=== PATIENT | male | born 1945 | race Caucasian/White ===

== ENCOUNTER 2017-08-05 19:30 | Outpatient (CLI) | payer MEDICARE | END 2017-08-05 19:31 | disposition home or self-care (01) | LOC: SLEEPLAB 19:30 | PROVIDERS: ATTEND Internal Medicine | DX: G47.33 Obstructive sleep apnea (adult) (pediatric) (principal); I50.9 Heart failure, unspecified; I11.0 Hypertensive heart disease with heart failure; G31.84 Mild cognitive impairment of uncertain or unknown etiology; E11.9 Type 2 diabetes mellitus without complications; E66.9 Obesity, unspecified; R06.83 Snoring | CPT/HCPCS: 95811 ==

== ENCOUNTER 2018-02-01 10:45 | Emergency (ER) | payer MEDICARE ==
[2018-02-01 11:46] LABS: #Eosinphils 0.1 thou/uL (0.0-0.7); #Lymphocytes 1.1 thou/uL (1.20-3.40); #Monocytes 0.5 thou/uL (0.11-0.59); #Neutrophils 3.9 thou/uL (1.40-6.50); %Basophils 0.7 % (0.0-1.0); %Eosinophils 1.7 % (0.0-10.0); %Lymphocytes 19.9 % (21.0-51.0); %Monocytes 9.4 % (0.0-10.0); %Neutrophils 68.4 % (42.0-75.0); Mean Corpuscular HGB CONC 32.7 g/dL (32.0-36.0); Mean Corpuscular Hemoglobin 30.8 pg (27.0-31.0); Mean Corpuscular Volume 94.1 fl (80.0-94.0); Mean Platelet Volume 7.4 fL (7.4-10.4); Platelet Count 180 thou/uL (130-400); Red Blood Cell (RBC) Count 4.87 mill/uL (4.70-6.10); White Blood Cell (WBC) Count 5.7 thou/uL (4.8-10.8)
[2018-02-01 11:54] LABS: ALT (SGPT) 9 U/L (8-55); AST (SGOT) 9 U/L (5-34); Albumin 3.3 g/dL (3.4-4.8); Alkaline Phosphatase 57 U/L (40-150); Anion Gap 10 mmol/L (10-20); BUN (Urea Nitrogen) 22 mg/dL (8.4-25.7); Bilirubin, Total 0.7 mg/dL (0.2-1.2); Calc. Creatinine Clearance 0 mL/min (70-130); Carbon Dioxide 27 mmol/L (23-31); Chloride 108 mmol/L (98-107); Estimated GFR-MDRD 44; Globulin 3.5 g/dL (2.4-3.5); Glucose 164 mg/dL (83-110); Potassium 4.3 mmol/L (3.5-5.1); Protein, Total 6.8 g/dL (5.8-8.1); Sodium 141 mmol/L (136-145)
[2018-02-01] MEDS ORDERED: Furosemide 40 MG/4 ML VIAL ONE (14:48)
--- NOTE | 2018-02-01 15:51 | RAD ---
PORTABLE FRONTAL CHEST RADIOGRAPH: Date: 02-01-18 Comparison: 08-22-09 History: Bilateral lower extremity edema for three months. Fluid overload. FINDINGS: There is mild blunting of the left costophrenic angle, stable. There is prominence of the cardiac reena houette, stable as well. No pneumothorax, consolidation, or alveolar edema. IMPRESSION: No acute findings. POS: [facility]
== END 2018-02-01 16:14 | disposition home or self-care (01) ==
LOC: ERS 10:45
DX: R60.0 Localized edema (principal); E11.9 Type 2 diabetes mellitus without complications; E78.5 Hyperlipidemia, unspecified; I10 Essential (primary) hypertension; Z79.82 Long term (current) use of aspirin; Z79.899 Other long term (current) drug therapy
CPT/HCPCS: 71045; 80053; 85025; J1940

== ENCOUNTER 2018-10-10 12:18 | Outpatient (CLI) | payer MEDICARE ==
--- NOTE | 2018-10-10 14:58 | MRI ---
BRAIN MRI NONCONTRAST: Date: 10/10/18 CLINICAL HISTORY: Memory impairment in 73-year-old male. FINDINGS: No evidence of acute territorial infarction, intracranial mass effect, or midline shift. Mild parench ymal atrophy with compensatory dilatation of the ventricular system is present. There is mild chronic ischemic disease of the cerebral white matter, as well as mild pontine gliosis. [place] intraocular l enses are intact. Scattered paranasal sinus mucosal thickening. Mild bilateral mastoid fluid is prese nt, right greater than left. There are a few scattered punctate foci susceptibility of the bilateral brain parenchyma. IMPRESSION: 1. No acute territorial infarction or mass effect. 2. Scattered punctate susceptibility foci. In a patient of this age, diagnosis of consideration woul d include amyloid angiopathy. 3. Mild chronic ischemic disease and mild parenchymal atrophy. POS: [facility]
== END 2018-10-10 12:19 | disposition home or self-care (01) ==
LOC: BICMRI 12:18
PROVIDERS: ATTEND Family Medicine
DX: R41.3 Other amnesia (principal); I67.82 Cerebral ischemia; G31.9 Degenerative disease of nervous system, unspecified
CPT/HCPCS: 70551

== ENCOUNTER 2018-11-26 12:59 | Inpatient (IN) | payer MEDICARE ==
--- NOTE | 2018-11-26 14:54 | CT ---
CT BRAIN: Date: 11/26/18 PROVIDED CLINICAL HISTORY: Altered mental status. FINDINGS: Comparison made with study dated 08/23/09. The ventricular system is normal in size and morphology. There is no evidence for intracranial hemorr atyler or mass effect. There is opacification of the sphenoid sinus with sphenoid sinus wall thickening compatible with chronic sinusitis. The extracranial soft tissues and osseous structures demonstrate no evidence for an acute process. IMPRESSION: No evidence for intracranial hemorrhage or mass effect. POS: [facility]
--- NOTE | 2018-11-26 14:55 | RAD ---
PORTABLE SUPINE CHEST: Date: 11/26/18 PROVIDED CLINICAL HISTORY: Altered mental status. FINDINGS: Comparison with 02/01/18. Cardiac and mediastinal silhouette is within normal limits. No focal consolidation evident. Evaluatio n for pleural fluid and pneumothorax is limited given the supine nature of the study, without gross e vidence for such. IMPRESSION: No evidence for an acute cardiopulmonary process. POS: [facility]
[2018-11-26 14:57] LABS: #Eosinphils 0.1 thou/uL (0.0-0.7); #Lymphocytes 1.1 thou/uL (1.20-3.40); #Neutrophils 10.2 thou/uL (1.40-6.50); %Basophils 0.2 % (0.0-1.0); %Eosinophils 0.6 % (0.0-10.0); %Lymphocytes 9.1 % (21.0-51.0); %Monocytes 7.8 % (0.0-10.0); %Neutrophils 82.3 % (42.0-75.0); Mean Corpuscular Hemoglobin 30.3 pg (27.0-31.0); Mean Corpuscular Volume 91.8 fL (78.0-98.0); Mean Platelet Volume 7.9 fL (7.4-10.4); Platelet Count 150 thou/uL (130-400); RBC Distribution Width 12.3 % (11.5-14.5); Red Blood Cell (RBC) Count 4.63 mill/uL (4.70-6.10); White Blood Cell (WBC) Count 12.4 thou/uL (4.8-10.8)
[2018-11-26 15:22] LABS: ALT (SGPT) 30 U/L (8-55); AST (SGOT) 66 U/L (5-34); Acetaminophen Less than 6.0 mcg/mL (10.0-30.0); Albumin 3.1 g/dL (3.4-4.8); Alcohol Less than 10 mg/dL (Less than 10); Alkaline Phosphatase 75 U/L (40-150); Anion Gap 18 mmol/L (10-20); BUN (Urea Nitrogen) 26 mg/dL (8.4-25.7); Bilirubin, Total 1.1 mg/dL (0.2-1.2); CK (CPK) 2254 U/L (30-200); Calc. Creatinine Clearance 0 mL/min (70-130); Calcium 9.3 mg/dL (7.8-10.44); Carbon Dioxide 21 mmol/L (23-31); Chloride 108 mmol/L (98-107); Estimated GFR-MDRD 48; Globulin 3.7 g/dL (2.4-3.5); Glucose 146 mg/dL (83-110); Potassium 3.8 mmol/L (3.5-5.1); Protein, Total 6.8 g/dL (5.8-8.1); Salicylate Less than 8.0 mg/dL (15.0-30.0); Sodium 143 mmol/L (136-145)
--- NOTE | 2018-11-26 15:32 | RAD ---
PELVIC RADIOGRAPH 11/26/18 PROVIDED CLINICAL HISTORY: Pain. FINDINGS: Evaluation is limited by patient body habitus and portable technique. There is no evidence for fractu re or other acute osseous abnormality. If there is persistent clinical concern, conservative manageme nt and followup imaging are advised. IMPRESSION: As above. POS: [facility]
--- NOTE | 2018-11-26 16:26 | PDOC.FPRHP ---
- History of Present Illness Chief Complaint: fall History of Present Illness: 73 yo M with PMH of memory impairment brought in by EMS for fall. Pt lives in a travel trailer by himself and was found on the floor by his neighbor who called EMS. Patient says he has been on the floor for the past 10 days and has been visited by "weird people" such as "tom doctors from [place]" which have picked him up from the floor and returned him back there. He says he knows this sounds crazy but acknowledges these experiences as very real. He has noticed worsening of memory for the past 6 mos but does not seem very distressed by this. Of note, he recently had an MRI Brain last October that showed amyloidosis deposits but has not had follow up for this. He does not have any psychiatric history. He denies any pain from the fall, no chest pain, seizure, syncope, remarkable weakness. Also, he has a PMH of HTN and DM2 but has not been taking his meds for the past 10 days because he says "his diabetes and blood pressure are under control." though he doesn't check sugars or BPs. 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 Denies alcohol and drugs - Review of Systems ROS unobtainable: due to mental status (of note, ROS is not wholly reliable due to patient mental status) General: denies: fever/chills, weight/appetite/sleep changes Eyes: reports: vision changes (blurry vision, chronic). denies: eye pain ENT: denies: nasal congestion, rhinorrhea Respiratory: denies: cough, congestion, shortness of breath Cardiovascular: denies: chest pain, palpitation, edema Gastrointestinal: denies: nausea, vomiting, diarrhea, constipation Genitourinary: denies: dysuria, polyuria Skin: denies: rashes, lesions, jaundice Musculoskeletal: denies: pain, tenderness, stiffness Neurological: denies: syncope, seizure, weakness Psychological: denies: anxiety, depression - Vital signs BP: [135/46] HR: [73] RR: [20] Tmax: [98.2] Pox: [98]% on [RA] Wt: [163 kg] - Physical Exam Constitutional: NAD, awake, alert and oriented -Constitutional: obese body habitus, poor hygenic status HEENT: normocephalic and atraumatic, PERRLA, EOMI, no scleral icterus, grossly normal vision Neck: supple, no JVD, no thyromegaly Chest: no-tender to palpation, no lesions Heart: RRR, normal S1/S2 Lungs: CTAB, no respiratory distress, no wheezing Abdomen: soft, non-tender, bowel sounds present Musculoskeletal: ROM grossly normal Neurological: CN II-XII intact Skin: no jaundice -Skin: bilateral lower extremity non pitting edema with red rash limited from ankle to mid springer. no warmth or tenderness. no sharp demarcation. no open or draining wounds. -Psychiatric: poor recent memory, intact remote memory FMR H&P: Results - Labs Result Diagrams: 11/26/18 14:27 11/26/18 14:27 Lab results: WBC 12.4 thou/uL (4.8-10.8) H 11/26/18 14:27 Hgb 14.0 g/dL (14.0-18.0) 11/26/18 14:27 Hct 42.5 % (42.0-52.0) 11/26/18 14:27 MCV 91.8 fL (78.0-98.0) 11/26/18 14:27 Plt Count 150 thou/uL (130-400) 11/26/18 14:27 Neutrophils % 82.3 % (42.0-75.0) H 11/26/18 14:27 Sodium 143 mmol/L (136-145) 11/26/18 14:27 Potassium 3.8 mmol/L (3.5-5.1) 11/26/18 14:27 Chloride 108 mmol/L (98-107) H 11/26/18 14:27 Carbon Dioxide 21 mmol/L (23-31) L 11/26/18 14:27 BUN 26 mg/dL (8.4-25.7) H 11/26/18 14:27 Creatinine 1.45 mg/dL (0.7-1.3) H 11/26/18 14:27 Glucose 146 mg/dL (83-110) H 11/26/18 14:27 Calcium 9.3 mg/dL (7.8-10.44) 11/26/18 14:27 Total Bilirubin 1.1 mg/dL (0.2-1.2) 11/26/18 14:27 AST 66 U/L (5-34) H 11/26/18 14:27 ALT 30 U/L (8-55) 11/26/18 14:27 Alkaline Phosphatase 75 U/L (40-150) 11/26/18 14:27 Creatine Kinase 2254 U/L (30-200) H 11/26/18 14:27 Serum Total Protein 6.8 g/dL (5.8-8.1) 11/26/18 14:27 Albumin 3.1 g/dL (3.4-4.8) L 11/26/18 14:27 - Radiology Interpretation Chest x-ray Status: report reviewed by me CT scan - pelvis Status: report reviewed by me CT scan - head Status: report reviewed by me FMR H&P: A/P - Problem List (1) Acute encephalopathy Current Visit: Yes Status: Acute Code(s): G93.40 - ENCEPHALOPATHY, UNSPECIFIED (2) Rhabdomyolysis Current Visit: Yes Status: Acute Code(s): M62.82 - RHABDOMYOLYSIS (3) Dementia with psychosis Current Visit: Yes Status: Acute Code(s): F03.91 - UNSPECIFIED DEMENTIA WITH BEHAVIORAL DISTURBANCE (4) Diabetes type 2, controlled Current Visit: Yes Status: Acute Code(s): E11.9 - TYPE 2 DIABETES MELLITUS WITHOUT COMPLICATIONS (5) Hypertension Current Visit: Yes Status: Acute Code(s): I10 - ESSENTIAL (PRIMARY) HYPERTENSION (6) CKD (chronic kidney disease) Current Visit: Yes Status: Acute Code(s): N18.9 - CHRONIC KIDNEY DISEASE, UNSPECIFIED (7) Metabolic acidosis Current Visit: Yes Status: Acute Code(s): E87.2 - ACIDOSIS - Plan 73 yo M with recent diagnosis of 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 brought in by EMS for fall and acute encephalopathy with rhabdomyloysis Dementia with hallucinations -MRI brain in October 2018 shows amyloid deposits, likely worsening progression dementia -Brain CT negative, CXR negative -Less likely infectious etiology, however will check procal -TSH low, will recheck fT4 -B9,B12 -Mg, phos, UA, UCx -haldol PRN -Unsure of baseline, plan to contact neighbors for better gauge of this Rhabdomyolysis -CPK 2254, 3x ULN -LR @150 -check lactic acid -AM CPK, daily BMP DINA vs CKD -no recent creatinine, however gfr around baseline -gentle fluids -daily BMPs Non-AG metabolic acidosis -fluids -daily BMPs Stasis dermatitis -no open or draining wounds -monitor, expect to improve with diuresis HTN -home lasix and lisinopril DM2 -recheck A1c -mod SS -hold metformin due to renal function prolonged QTc -aware, tele monitoring dvt ppx: lovenox gi ppx: none Discussed with Dr. hansen FMR H&P: Upper Level - Pertinent history 73 yo WM PMH HTN, HLD, DM2, and recent worsening mental impairment. Presents via EMS after patient was found down at home by neighbor. Patient states he has been "periodically on the floor for 10 days" and "strange people are breaking into my house and taking me places." He describes one of these people as a "witch doctor from [place]." States he does not remember where the people take him. Denies CP, SOB, or abdominal pain. ER: Labs, CT brain, CXR, XR pelvis, EKG, NS 1L - Pertinent findings Vitals: BP mildly elevated otherwise WNL GEN: NAD A&Ox4. Morbidly obese, malodorous. CV: RRR no murmur Pulm: CTA-B, normal effort Ext: Non pitting edema, right leg red without warmth or tenderness consistent with stasis dermatitis Psych: endorses visual hallucinations. Understands they sound irrational but believes he is being taken from his trailer to other locations and returned. Labs: CPK 2254, TSH 0.3125 EKG: NSR, mild QTc prolongation CT Brain: No acute processes CXR: No acute processes XR pelvis: Limited exam, no acute fractures. - Plan Date/Time: 11/26/18 1623 I, Manny Harmon MD, have evaluated this patient and agree with findings/plan as outlined by [facility] intern resident. Pertinent changes/additions are listed here. 1. Rhabdomyolysis 2/2 fall with unknown down time: LR 150 mL/hr, daily BMP and CPK, monitor for signs of fluid overload 2. CKD3: stable based on most recent clinic labs 3. Mild metabolic acidosis: check lactic acid 4. Leukocytosis: check procalcitonin, monitor for signs of infection 5. Stasis dermatitis: wound care 6. Dementia with hallucinations: DDx includes Alzheimer's vs Lewy body dementia vs frontotemporal dementia. MRI in October showed concern for amyloid deposits. ROSA [facility]. Discussed placement with patient who was agreeable to considering temporary placement. will continue outpatient evaluation. Consult CM for placement. 7. HTN: home meds 8. DM2: Home meds, SSI, check A1c 9. HLD: high intensity statin Diet: CC, PATRICIA PPx: lovenox CODE: DNR-DNI, while patient is having visual hallucinations, I feel he is competent and understands the consequences of his decisions. Dispo: Inpatient, Tele, >[address] Hansen. Addendum - Attending - Attending Attestation Date/Time: 11/26/181917 I personally evaluated the patient and discussed the management with Dr. Bates I agree with the History, Examination, Assessment and Plan documented above with any addition or exceptions noted below.Patient would not be appropriate to return to current living situations without significant improvement. Morbid obesity with poor hygiene ,stasis dermatitis lower extremities and AMS with currently unknown mental status baseline . Rhabdomyolysis noted on lab iv hydration started and metformin held.
[2018-11-26] MEDS ORDERED: Adacel (T-DAP) 0.5 ML SYRINGE ONE (16:40)
[2018-11-26] MEDS ORDERED: Dextrose 5% in Water 1,000 ML IV PRN (16:49)
[2018-11-26] MEDS ORDERED: HumaLOG 300 UNITS/3 ML VIAL SC PRN (16:49)
[2018-11-26] MEDS ORDERED: Dextrose 50% Abboject 50 ML SYRINGE SLOW IVP PRN (16:49)
[2018-11-26 17:08] LABS: Hemoglobin A1c 7.5 % (4.0-6.0)
[2018-11-26 17:16] LABS: Magnesium 1.8 mg/dL (1.6-2.6); Phosphorus 3.4 mg/dL (2.3-4.7)
[2018-11-26] MEDS ORDERED: Haloperidol Lactate 5 MG/ML VIAL SLOW IVP PRN (17:19)
[2018-11-26 17:22] LABS: Bilirubin Small (Negative); Blood, Urine Trace (Negative); Clarity CLEAR (Clear); Glucose, Urine (Dipstick) Negative (Negative); Leukocyte Negative (Negative); Nitrite Negative (Negative); Protein, Urine (Dipstick) 30 mg/dL (Neg-Trace); Specific Gravity, Urine 1.022 (1.002-1.036); Urobilinogen 0.2 mg/dL (0.2-1.0)
[2018-11-26 17:26] LABS: Squamous Epithelial 0-3 HPF (0-3); WBC/HPF 0-3 HPF (0-3)
[2018-11-26 17:28] LABS: Pathc Cast-AUWi Flag 5.08 (0-2.49)
[2018-11-26 17:33] LABS: Amphetamine Not Detected (NotDetected); Barbiturates Screen Not Detected (NotDetected); Benzodiazepine Screen Not Detected (NotDetected); Cocaine Metabolite Screen Not Detected (NotDetected); Medtox Control Line Valid? VALID (VALID); Medtox Reader # READER 1; Methadone Not Detected (NotDetected); Methamphetamine Not Detected (NotDetected); Opiate Screen Not Detected (NotDetected); Oxycodone Screen Not Detected (NotDetected); Phencyclidine (PCP) Not Detected (NotDetected); THC/Cannabinoid Screen Not Detected (NotDetected); Tricyclic Screen Not Detected (NotDetected)
[2018-11-26 17:37] LABS: Bacteria/HPF 1+ HPF (None Seen); Hyaline Casts/LPF 4-6 HYALINE CAST LPF (0-3 Hyaline); Manual Microscopic Reviewed? No Path Casts Seen; RBC/HPF 0-3 HPF (0-3)
[2018-11-26 19:28] LABS: Troponin I 0.011 ng/mL (< 0.028)
[2018-11-26 19:56] LABS: Folate (Folic Acid) 3.2 ng/mL (7.0-31.4)
[2018-11-26 20:13] LABS: Lactic Acid 2.2 mmol/L (0.5-2.2)
[2018-11-26 21:22] LABS: Troponin I Less than 0.010 ng/mL (< 0.028)
[2018-11-27 04:08] LABS: ALT (SGPT) 31 U/L (8-55); AST (SGOT) 53 U/L (5-34); Albumin 2.7 g/dL (3.4-4.8); Alkaline Phosphatase 52 U/L (40-150); Anion Gap 14 mmol/L (10-20); BUN (Urea Nitrogen) 24 mg/dL (8.4-25.7); CK (CPK) 1521 U/L (30-200); Calc. Creatinine Clearance 0 mL/min (70-130); Calcium 8.9 mg/dL (7.8-10.44); Carbon Dioxide 22 mmol/L (23-31); Chloride 109 mmol/L (98-107); Estimated GFR-MDRD 57; Globulin 3.6 g/dL (2.4-3.5); Glucose 154 mg/dL (83-110); Potassium 3.6 mmol/L (3.5-5.1); Protein, Total 6.3 g/dL (5.8-8.1); Sodium 141 mmol/L (136-145)
[2018-11-27 04:33] LABS: Hemoglobin 13.8 g/dL (14.0-18.0); Mean Corpuscular HGB CONC 32.9 g/dL (32.0-36.0); Mean Corpuscular Hemoglobin 31.2 pg (27.0-31.0); Mean Corpuscular Volume 94.9 fL (78.0-98.0); Mean Platelet Volume 7.3 fL (7.4-10.4); Platelet Count 181 thou/uL (130-400); RBC Distribution Width 12.4 % (11.5-14.5); Red Blood Cell (RBC) Count 4.42 mill/uL (4.70-6.10)
--- NOTE | 2018-11-27 05:36 | PDOC.FM ---
- Subjective Subjective: NAEO. Patient denies any SOB, chest pain, or fever/chills. State she feels well this AM. A&Ox3. No delusions came up in conversation. - Objective MAR Reviewed: Yes Result Diagrams: 11/27/18 03:40 11/27/18 03:40 Phys Exam - Physical Examination Constitutional: NAD HEENT: moist MMs Neck: supple, full ROM Respiratory: no rales, no rhonchi, wheezing present, clear to auscultation bilateral Cardiovascular: RRR, no significant murmur Gastrointestinal: positive bowel sounds Musculoskeletal: edema present Neurological: non-focal, moves all 4 limbs Psychiatric: normal affect, A&O x 3 Skin: normal turgor Deviation from normal: stasis dermatitis in B/L LEs with thick, brown debris on toe Dx/Plan (1) Acute encephalopathy Code(s): G93.40 - ENCEPHALOPATHY, UNSPECIFIED Status: Acute (2) CKD (chronic kidney disease) Code(s): N18.9 - CHRONIC KIDNEY DISEASE, UNSPECIFIED Status: Acute (3) Dementia with psychosis Code(s): F03.91 - UNSPECIFIED DEMENTIA WITH BEHAVIORAL DISTURBANCE Status: Acute (4) Diabetes type 2, controlled Code(s): E11.9 - TYPE 2 DIABETES MELLITUS WITHOUT COMPLICATIONS Status: Acute (5) Hypertension Code(s): I10 - ESSENTIAL (PRIMARY) HYPERTENSION Status: Acute (6) Metabolic acidosis Code(s): E87.2 - ACIDOSIS Status: Acute (7) Rhabdomyolysis Code(s): M62.82 - RHABDOMYOLYSIS Status: Acute - Plan Plan: 73YOM with recent diagnosis of 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 Dementia with hallucinations -MRI brain in October 2018 shows amyloid deposits, likely worsening progression dementia -Brain CT & CXR negative on presentation to the ED. -Less likely infectious etiology as patient was non-toxic appearing and vitals were WNL -TSH low but T4 WNLs. -B12, Mg, & phos WNLs but folate low at 3.2. will start on QD supplementation. -UA showed 1+ bacteria and small bld, Cx pending. - Will continue haldol PRN & contact neighbors today for better gauge of this. Will likely need senior living placement vs. short stay in SNF or rehab. - Will frequently reorient and try to keep patient awake during the day so he will sleep well at night. Rhabdomyolysis - CPK down to 1.5k this AM. - Will continue LR @ 150mL/hr - AM CPK & daily BMP DINA vs CKD -no recent creatinine for comparison but down to 1.24 this AM w/ eGFR of 57. -daily BMPs Non-AG metabolic acidosis - slightly improved - Will continue with IVFs & daily BMPs Stasis dermatitis -no open or draining wounds -will elevate legs in bed when sitting -monitor, expect to improve with diuresis -WC consulted HTN -home lasix and lisinopril now that renal function & CPK have improved DM2 -A1c 7.5 so DM decently controlled -mod SS -held metformin due to renal function but will consider resuming since renal function has improved w/ fluids prolonged QTc -aware, tele monitoring IVFs: LR @ 150mL/hr dvt ppx: lovenox gi ppx: none Addendum - Attending - Attending Attestation Date/Time: 11/27/18 5033 I personally evaluated the patient and discussed the management with Dr. Cardenas I agree with the History, Examination, Assessment and Plan documented above with any addition or exceptions noted below.Rec notify APS to evaluate home living situation and explore placement [facility].
[2018-11-27 06:55] LABS: Band 4 % (5-11); Eosinophils 2 % (0-10); Lymphocytes 18 % (21-51); MDiff Complete? YES; Monocytes 7 % (0-10); Neutrophil 69 % (42-75)
[2018-11-27] MEDS: Lactated Ringer's 1,000 ML IV SCH ×5 (07:33→21:44)
[2018-11-27] MEDS: Atorvastatin Calcium 40 MG TAB PO SCH ×2 (07:34→21:43)
[2018-11-27] MEDS ORDERED: Enoxaparin Sodium 40 MG/0.4 ML SYRINGE ONE (08:10)
[2018-11-27] MEDS ORDERED: Furosemide 40 MG TAB ONE (08:10)
[2018-11-27] MEDS ORDERED: Lisinopril 10 MG TAB ONE ×2 (08:10→08:20)
[2018-11-27] MEDS: Enoxaparin Sodium 40 MG/0.4 ML SYRINGE SC SCH (08:34)
[2018-11-27] MEDS: Lisinopril 20 MG TAB PO SCH (08:34)
[2018-11-27] MEDS: Folic Acid 1 MG TAB PO SCH (08:34)
[2018-11-27] MEDS: Furosemide 40 MG TAB PO SCH (08:34)
[2018-11-27] MEDS ORDERED: Folic Acid 1 MG TAB ONE (09:05)
[2018-11-27 13:11] VITALS: BMI 43.8
[2018-11-27] MEDS: Loperamide HCl 2 MG CAP PO PRN ×2 (21:43→23:17)
[2018-11-28] MEDS: Loperamide HCl 2 MG CAP PO PRN ×2 (02:03→05:24)
[2018-11-28] MEDS: Lactated Ringer's 1,000 ML IV SCH ×2 (02:31→10:25)
--- NOTE | 2018-11-28 06:17 | PDOC.FM ---
- Subjective Subjective: Overnight, patient had multiple episodes of diarrhea, non bloody. Patient has no complaints or concerns this AM. Denies SOB, chest pain, abdominal pain, NV, fever/chills. - Objective MAR Reviewed: Yes Vital Signs & Weight: Vital Signs (12 hours) Temp Pulse Resp BP Pulse Ox 11/27/18 20:00 97.6 F 65 18 158/78 H 96 Weight Weight 154.873 kg I&O: 11/26/18 11/27/18 11/28/18 06:59 06:59 06:59 Intake Total 3158 Output Total 550 Balance 2608 Result Diagrams: 11/28/18 06:19 11/28/18 06:19 Phys Exam - Physical Examination Constitutional: NAD HEENT: PERRLA, moist MMs, sclera anicteric Neck: supple, full ROM Respiratory: clear to auscultation bilateral Cardiovascular: RRR Gastrointestinal: soft, non-tender, no distention, positive bowel sounds bilateral 2+ edema Neurological: non-focal, moves all 4 limbs Psychiatric: A&O x 3 Deviation from normal: no hallucinations or delusions Deviation from normal: ulcer stage 2 on right springer Dx/Plan (1) Acute encephalopathy Code(s): G93.40 - ENCEPHALOPATHY, UNSPECIFIED Status: Acute (2) CKD (chronic kidney disease) Code(s): N18.9 - CHRONIC KIDNEY DISEASE, UNSPECIFIED Status: Acute (3) Dementia with psychosis Code(s): F03.91 - UNSPECIFIED DEMENTIA WITH BEHAVIORAL DISTURBANCE Status: Acute (4) Diabetes type 2, controlled Code(s): E11.9 - TYPE 2 DIABETES MELLITUS WITHOUT COMPLICATIONS Status: Acute (5) Hypertension Code(s): I10 - ESSENTIAL (PRIMARY) HYPERTENSION Status: Acute (6) Metabolic acidosis Code(s): E87.2 - ACIDOSIS Status: Acute (7) Rhabdomyolysis Code(s): M62.82 - RHABDOMYOLYSIS Status: Acute - Plan Plan: Dementia with hallucinations Pt w/ hx of MRI brain in October 2018 shows amyloid deposits, likely worsening progression dementia - Brain CT & CXR negative on presentation to the ED - Less likely infectious etiology as patient was non-toxic appearing and vitals were WNL; procal 0.4 - TSH low but T4 WNLs. - B12, Mg, & phos WNLs but folate low at 3.2. Will start on QD supplementation. - UA showed 1+ bacteria and small bld, Cx pending. - Will continue haldol PRN & contact neighbors for better gauge of this. Will likely need penitentiary placement vs. short stay in SNF or rehab. CM consulted to help with discharge planning. - Will frequently reorient and try to keep patient awake during the day so he will sleep well at night. Rhabdomyolysis - CPK 1521 -> 843 - Will continue LR @ 150mL/hr - AM CPK & daily BMP DINA vs CKD - no recent creatinine for comparison but down to 1.24 -> 1.17 - daily BMPs Diarrhea - CDiff assay pending - pt given Immodium Non-AG metabolic acidosis - slightly improved - Will continue with IVFs & daily BMPs Stasis dermatitis - No open or draining wounds - Will elevate legs in bed when sitting - Monitor, expect to improve with diuresis - WC consulted HTN - Home lasix and lisinopril now that renal function & CPK have improved DM2 - A1c 7.5 so DM decently controlled - mod SS - Will restart home metformin Prolonged QTc - aware, tele monitoring Code: FULL Dispo: pending placement, clinically improved, discharge in 1-2days Addendum - Attending - Attending Attestation Date/Time: 11/28/18 4309 I personally evaluated the patient and discussed the management with Dr. Cintron I agree with the History, Examination, Assessment and Plan documented above with any addition or exceptions noted below. Today patient is A&O x 3. He still has some confusion about what happened before his hospitalization. Today complains of low back and hip pain. s/p fall- pelvis xray neg- no incontinence symptoms, just pain (which most likely is related to being found down after several days on the ground). normal sensation b lower extremeties and able to lift legs (just weaker from pain). PT for evaluation and probable placement Dementia- continue outpatient workup. Appears at baseline now
[2018-11-28 06:59] LABS: #Eosinphils 0.3 thou/uL (0.0-0.7); #Lymphocytes 1.5 thou/uL (1.20-3.40); #Monocytes 0.6 thou/uL (0.11-0.59); #Neutrophils 4.2 thou/uL (1.40-6.50); %Basophils 0.7 % (0.0-1.0); %Eosinophils 4.1 % (0.0-10.0); %Lymphocytes 22.5 % (21.0-51.0); %Monocytes 9.4 % (0.0-10.0); %Neutrophils 63.4 % (42.0-75.0); Hemoglobin 13.5 g/dL (14.0-18.0); Mean Corpuscular HGB CONC 32.4 g/dL (32.0-36.0); Mean Corpuscular Hemoglobin 30.8 pg (27.0-31.0); Mean Platelet Volume 7.1 fL (7.4-10.4); Platelet Count 181 thou/uL (130-400); RBC Distribution Width 12.1 % (11.5-14.5); White Blood Cell (WBC) Count 6.6 thou/uL (4.8-10.8)
[2018-11-28 07:18] LABS: Anion Gap 14 mmol/L (10-20); BUN (Urea Nitrogen) 20 mg/dL (8.4-25.7); CK (CPK) 843 U/L (30-200); Calc. Creatinine Clearance 121 mL/min (70-130); Calcium 8.4 mg/dL (7.8-10.44); Carbon Dioxide 21 mmol/L (23-31); Chloride 109 mmol/L (98-107); Estimated GFR-MDRD 61; Glucose 129 mg/dL (83-110); Potassium 3.3 mmol/L (3.5-5.1); Sodium 141 mmol/L (136-145)
[2018-11-28] MEDS ORDERED: Potassium Chloride 20 MEQ TAB PO SCH (08:15)
[2018-11-28 08:34] LABS: Magnesium 1.7 mg/dL (1.6-2.6); Phosphorus 2.9 mg/dL (2.3-4.7)
[2018-11-28] MEDS: Folic Acid 1 MG TAB PO SCH (08:38)
[2018-11-28] MEDS: Furosemide 40 MG TAB PO SCH (08:38)
[2018-11-28] MEDS: Lisinopril 20 MG TAB PO SCH (08:39)
[2018-11-28] MEDS: Enoxaparin Sodium 40 MG/0.4 ML SYRINGE SC SCH (08:39)
[2018-11-28] MEDS: metFORMIN 500 MG TAB PO SCH ×2 (08:39→16:19)
[2018-11-28] MEDS ORDERED: Non-Formulary Item 1 EACH (Atorvastatin Calcium [Atorvastatin Calcium] 80 MG) PO SCH (09:00)
[2018-11-28] MEDS: Calcium Carbonate + Vit D 1 TAB PO SCH (17:27)
[2018-11-28] MEDS: Insulin Regular 300 UNITS/3 ML VIAL SC PRN ×2 (17:27→20:40)
[2018-11-28] MEDS: Cyanocobalamin (Vitamin B-12) 1,000 MCG TAB PO SCH (20:37)
[2018-11-28] MEDS: Atorvastatin Calcium 40 MG TAB PO SCH (20:37)
[2018-11-28] MEDS: Multivitamin W/ Minerals 1 TAB PO SCH (20:37)
--- NOTE | 2018-11-29 06:02 | PDOC.FM ---
- Subjective Subjective: NAEO. Patient has no complaints or concerns this morning. States he is tired, but is getting good rest. No hallucinations or delusions endorsed. Denies chest pain, palpitations, abdominal pain, NVD. Patient states that he worked w/ PT yesterday. He was able to sit up in bed and moves legs, but not able to ambulate yet. - Objective MAR Reviewed: Yes Vital Signs & Weight: Vital Signs (12 hours) Temp Pulse Resp BP Pulse Ox 11/29/18 04:42 98.0 F 60 20 168/75 H 95 11/28/18 20:00 97 11/28/18 19:50 98.0 F 67 20 153/83 H 97 Weight Admit Weight 154.87 kg Weight 154.873 kg I&O: 11/27/18 11/28/18 11/29/18 06:59 06:59 06:59 Intake Total 3158 Output Total 550 Balance 2608 Result Diagrams: 11/28/18 06:19 11/29/18 08:33 Phys Exam - Physical Examination Constitutional: NAD HEENT: PERRLA, moist MMs, sclera anicteric Neck: supple, full ROM Respiratory: clear to auscultation bilateral Cardiovascular: RRR Gastrointestinal: soft, non-tender, no distention, positive bowel sounds 2+ edema bilaterally Neurological: non-focal, moves all 4 limbs Psychiatric: normal affect, A&O x 3 Dx/Plan (1) Acute encephalopathy Code(s): G93.40 - ENCEPHALOPATHY, UNSPECIFIED Status: Acute (2) CKD (chronic kidney disease) Code(s): N18.9 - CHRONIC KIDNEY DISEASE, UNSPECIFIED Status: Acute (3) Dementia with psychosis Code(s): F03.91 - UNSPECIFIED DEMENTIA WITH BEHAVIORAL DISTURBANCE Status: Acute (4) Diabetes type 2, controlled Code(s): E11.9 - TYPE 2 DIABETES MELLITUS WITHOUT COMPLICATIONS Status: Acute (5) Hypertension Code(s): I10 - ESSENTIAL (PRIMARY) HYPERTENSION Status: Acute (6) Metabolic acidosis Code(s): E87.2 - ACIDOSIS Status: Acute (7) Rhabdomyolysis Code(s): M62.82 - RHABDOMYOLYSIS Status: Acute - Plan Plan: Dementia with hallucinations Pt w/ hx of MRI brain in October 2018 shows amyloid deposits, likely worsening progression dementia - Brain CT & CXR negative on presentation to the ED - Less likely infectious etiology as patient was non-toxic appearing and vitals were WNL; procal 0.4 - TSH low but T4 WNLs. - B12, Mg, & phos WNLs but folate low at 3.2. Will start on QD supplementation. - UA showed 1+ bacteria and small bld, Cx now growth to date - Will frequently reorient and try to keep patient awake during the day so he will sleep well at night. - CM consulted - pending SNF placement Rhabdomyolysis - CPK downtrending since admission - IVF d/c'd; Encourage PO hydration - AM CPK & daily BMP DINA vs CKD - no recent creatinine for comparison but downtrending - daily BMPs Diarrhea - CDiff assay pending - pt given Immodium Non-AG metabolic acidosis - slightly improved - Will continue with IVFs & daily BMPs Stasis dermatitis - No open or draining wounds; Will elevate legs in bed when sitting - Monitor, expect to improve with diuresis - WC consulted HTN - Home lasix and lisinopril now that renal function & CPK have improved - BP ranging 150-160/70-80s - Will start low dose amlodipine and monitor for worsening LE swelling DM2 - A1c 7.5 so DM decently controlled - mod SS; Will restart home metformin Prolonged QTc - aware, tele monitoring Code: FULL Dispo: pending placement at SNF Addendum - Attending - Attending Attestation Date/Time: 11/29/18 1431 I personally evaluated the patient and discussed the management with Dr. Cintron. I agree with the History, Examination, Assessment and Plan documented above with any addition or exceptions noted below. Dementia-patient A&Ox 2 today h/o fall- no obvious injury-just generalized weakness. Deconditioning-continue PT and hopeful SNF acceptance soon. Stable for d/c one placement arranged.
[2018-11-29] MEDS ORDERED: Lisinopril/Hydrochlorothiazide 20 mg/12.5 mg Tablet PO SCH (09:00)
[2018-11-29 09:12] LABS: Anion Gap 11 mmol/L (10-20); BUN (Urea Nitrogen) 18 mg/dL (8.4-25.7); CK (CPK) 360 U/L (30-200); Calc. Creatinine Clearance 112 mL/min (70-130); Calcium 8.7 mg/dL (7.8-10.44); Carbon Dioxide 26 mmol/L (23-31); Chloride 108 mmol/L (98-107); Estimated GFR-MDRD 55; Glucose 159 mg/dL (83-110); Magnesium 1.6 mg/dL (1.6-2.6); Phosphorus 2.9 mg/dL (2.3-4.7); Potassium 3.4 mmol/L (3.5-5.1); Sodium 142 mmol/L (136-145)
[2018-11-29] MEDS ORDERED: Potassium Chloride 20 MEQ TAB PO SCH (09:30)
[2018-11-29] MEDS: Lisinopril 20 MG TAB PO SCH (10:16)
[2018-11-29] MEDS: Multivitamin W/ Minerals 1 TAB PO SCH ×2 (10:16→20:11)
[2018-11-29] MEDS: Cyanocobalamin (Vitamin B-12) 1,000 MCG TAB PO SCH ×2 (10:17→20:11)
[2018-11-29] MEDS: Amlodipine 5 MG TAB PO SCH (10:17)
[2018-11-29] MEDS: Furosemide 40 MG TAB PO SCH (10:17)
[2018-11-29] MEDS: Calcium Carbonate + Vit D 1 TAB PO SCH ×2 (10:17→19:07)
[2018-11-29] MEDS: Enoxaparin Sodium 40 MG/0.4 ML SYRINGE SC SCH (10:18)
[2018-11-29] MEDS: Folic Acid 1 MG TAB PO SCH (10:18)
[2018-11-29] MEDS: metFORMIN 500 MG TAB PO SCH ×2 (12:44→19:08)
[2018-11-29] MEDS: Insulin Regular 300 UNITS/3 ML VIAL SC PRN ×2 (12:44→19:08)
--- NOTE | 2018-11-29 15:15 | PQF ---
CLINICAL DOCUMENTATION IMPROVEMENT CLARIFICATION FORM: ICD-10 Updated PLEASE DO AN ADDENDUM TO THE PROGRESS NOTE WITH ANY DOCUMENTATION UPDATES OR ADDITIONS AND CARRY THROUGH TO DC SUMMARY. THANK YOU. DATE: 11/29/18 ATTN: DR. JACQUES Please exercise your independent, professional judgment in responding to the clarification form. Clinical indicators are provided on the bottom of this form for your review Please check appropriate box(s): [ ] Encephalopathy: Type: [ X ] Acute [ ] Subacute [ ] Chronic Etiology: [ ] Hypertensive [ X ] Metabolic [ ] Toxic [ ] Hepatic with Coma [ ] Hepatic w/o Coma [ ] Hypoxic [ ] Septic [ ] Drug induced: [ ] Unspecified [ ] in the setting of underlying dementia [ ] Other (please specify) [ ] Transient Alteration of Awareness [ X ] Other diagnosis ____hypovolemia and rhabdomyolysis [ ] Unable to determine In addition, please specify: Present on Admission (POA): [X ] Yes [ ] No [ ] Unable to determine For continuity of documentation, please document condition throughout progress notes and discharge summary. Thank You. 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 All Rights Reserved PATRIZIA [email or web address] Office: [phone] [facility] CENTERPrim[facility]
[2018-11-29] MEDS: Atorvastatin Calcium 40 MG TAB PO SCH (20:11)
--- NOTE | 2018-11-30 06:32 | PDOC.FM ---
- Subjective Subjective: NAEO. No delusions or hallucinations endorsed during exam. Patient states he feels well and has no issues or complaints. - Objective MAR Reviewed: Yes Vital Signs & Weight: Vital Signs (12 hours) Temp Pulse Resp BP Pulse Ox 11/30/18 03:00 98.2 F 60 18 126/60 94 L 11/29/18 23:00 98.3 F 64 20 148/74 H 95 11/29/18 20:00 93 L 11/29/18 19:56 98.4 F 66 21 H 149/63 H 93 L Weight Admit Weight 154.87 kg Weight 154.873 kg I&O: 11/28/18 11/29/18 11/30/18 06:59 06:59 06:59 Intake Total 3158 400 650 Output Total 978 594 5137 Balance 2608 0 -600 Result Diagrams: 11/28/18 06:19 11/30/18 06:42 Phys Exam - Physical Examination Constitutional: NAD HEENT: PERRLA, moist MMs, sclera anicteric Neck: full ROM Respiratory: clear to auscultation bilateral Cardiovascular: RRR Gastrointestinal: soft Neurological: non-focal Psychiatric: normal affect, A&O x 3 Dx/Plan (1) Acute encephalopathy Code(s): G93.40 - ENCEPHALOPATHY, UNSPECIFIED Status: Acute (2) CKD (chronic kidney disease) Code(s): N18.9 - CHRONIC KIDNEY DISEASE, UNSPECIFIED Status: Acute (3) Dementia with psychosis Code(s): F03.91 - UNSPECIFIED DEMENTIA WITH BEHAVIORAL DISTURBANCE Status: Acute (4) Diabetes type 2, controlled Code(s): E11.9 - TYPE 2 DIABETES MELLITUS WITHOUT COMPLICATIONS Status: Acute (5) Hypertension Code(s): I10 - ESSENTIAL (PRIMARY) HYPERTENSION Status: Acute (6) Metabolic acidosis Code(s): E87.2 - ACIDOSIS Status: Acute (7) Rhabdomyolysis Code(s): M62.82 - RHABDOMYOLYSIS Status: Acute - Plan Plan: Dementia with hallucinations Pt w/ hx of MRI brain in October 2018 shows amyloid deposits, likely worsening progression dementia - Brain CT & CXR negative on presentation to the ED; Less likely infectious etiology as patient was non-toxic appearing and vitals were WNL; procal 0.4 - TSH low but T4 WNLs. - B12, Mg, & phos WNLs but folate low at 3.2. Will start on QD supplementation. - UA showed 1+ bacteria and small bld, Cx now growth to date - Will frequently reorient and try to keep patient awake during the day so he will sleep well at night. - CM consulted - pending SNF placement Rhabdomyolysis - CPK downtrending since admission - Encourage PO hydration - AM CPK & daily BMP DINA vs CKD - no recent creatinine for comparison but downtrending - daily BMPs Diarrhea - CDiff assay pending - pt given Immodium Non-AG metabolic acidosis - slightly improved - Will continue with IVFs & daily BMPs Stasis dermatitis - No open or draining wounds; Will elevate legs in bed when sitting - Monitor, expect to improve with diuresis - WC consulted HTN - Home lasix and lisinopril now that renal function & CPK have improved - BP ranging 150-160/70-80s - Will start low dose amlodipine and monitor for worsening LE swelling DM2 - A1c 7.5 so DM decently controlled - mod SS; Will restart home metformin Prolonged QTc - aware, tele monitoring Code: FULL Dispo: pending placement at SNF Addendum - Attending - Attending Attestation Date/Time: 11/30/18 8060 I personally evaluated the patient and discussed the management with Dr. Cintron. I agree with the History, Examination, Assessment and Plan documented above with any addition or exceptions noted below. Stable for discharge once set up with SNF as not safe to go home independently.
[2018-11-30 07:24] LABS: Anion Gap 13 mmol/L (10-20); BUN (Urea Nitrogen) 17 mg/dL (8.4-25.7); Calc. Creatinine Clearance 158 mL/min (70-130); Calcium 8.9 mg/dL (7.8-10.44); Carbon Dioxide 27 mmol/L (23-31); Chloride 106 mmol/L (98-107); Estimated GFR-MDRD 82; Glucose 111 mg/dL (83-110); Potassium 3.8 mmol/L (3.5-5.1); Sodium 142 mmol/L (136-145)
[2018-11-30] MEDS: Lisinopril 20 MG TAB PO SCH (08:53)
[2018-11-30] MEDS: Multivitamin W/ Minerals 1 TAB PO SCH ×2 (08:53→20:20)
[2018-11-30] MEDS: Folic Acid 1 MG TAB PO SCH (08:53)
[2018-11-30] MEDS: Amlodipine 5 MG TAB PO SCH (08:53)
[2018-11-30] MEDS: Calcium Carbonate + Vit D 1 TAB PO SCH ×2 (08:53→18:04)
[2018-11-30] MEDS: Enoxaparin Sodium 40 MG/0.4 ML SYRINGE SC SCH (08:53)
[2018-11-30] MEDS: Furosemide 40 MG TAB PO SCH (08:53)
[2018-11-30] MEDS: Cyanocobalamin (Vitamin B-12) 1,000 MCG TAB PO SCH ×2 (08:54→20:20)
[2018-11-30] MEDS: metFORMIN 500 MG TAB PO SCH ×2 (08:54→18:04)
[2018-11-30] MEDS: Atorvastatin Calcium 40 MG TAB PO SCH (20:20)
[2018-11-30] MEDS: Insulin Regular 300 UNITS/3 ML VIAL SC PRN (20:20)
--- NOTE | 2018-12-01 06:31 | PDOC.FM ---
- Subjective Subjective: NAEO. Patient reports feeling well this morning. States [place] with PT [place] The patient states he is tolerating PO well. Denies SOB , chest pain, abdominal pain. - Objective MAR Reviewed: Yes Vital Signs & Weight: Vital Signs (12 hours) Temp Pulse Resp BP Pulse Ox 11/30/18 20:00 96 11/30/18 19:59 97.9 F 60 20 144/63 H 95 Weight Admit Weight 154.87 kg Weight 154.873 kg I&O: 11/29/18 11/30/18 12/01/18 06:59 06:59 06:59 Intake Total 400 650 Output Total 400 1250 Balance 0 -600 Result Diagrams: 11/28/18 06:19 11/30/18 06:42 Phys Exam - Physical Examination Constitutional: NAD HEENT: PERRLA, moist MMs, sclera anicteric Neck: supple, full ROM Respiratory: clear to auscultation bilateral Cardiovascular: RRR Gastrointestinal: soft Neurological: non-focal Psychiatric: normal affect, A&O x 3 Dx/Plan (1) Acute encephalopathy Code(s): G93.40 - ENCEPHALOPATHY, UNSPECIFIED Status: Acute (2) CKD (chronic kidney disease) Code(s): N18.9 - CHRONIC KIDNEY DISEASE, UNSPECIFIED Status: Acute (3) Dementia with psychosis Code(s): F03.91 - UNSPECIFIED DEMENTIA WITH BEHAVIORAL DISTURBANCE Status: Acute (4) Diabetes type 2, controlled Code(s): E11.9 - TYPE 2 DIABETES MELLITUS WITHOUT COMPLICATIONS Status: Acute (5) Hypertension Code(s): I10 - ESSENTIAL (PRIMARY) HYPERTENSION Status: Acute (6) Metabolic acidosis Code(s): E87.2 - ACIDOSIS Status: Acute (7) Rhabdomyolysis Code(s): M62.82 - RHABDOMYOLYSIS Status: Acute - Plan Plan: Dementia with hallucinations, improved Pt w/ hx of MRI brain in October 2018 shows amyloid deposits, likely worsening progression dementia - Brain CT & CXR negative on presentation to the ED; Less likely infectious etiology as patient was non-toxic appearing and vitals were WNL; procal 0.4 - TSH low but T4 WNLs. - B12, Mg, & phos WNLs but folate low at 3.2. Will start on QD supplementation. - UA showed 1+ bacteria and small bld, Cx now growth to date - Will frequently reorient and try to keep patient awake during the day so he will sleep well at night. - CM consulted - pending SNF placement Rhabdomyolysis - CPK downtrending since admission - Encourage PO hydration - AM CPK & daily BMP DINA vs CKD - no recent creatinine for comparison but downtrending - daily BMPs Diarrhea, functional - likely not C diff, will continue to monitor Non-AG metabolic acidosis - slightly improved - Will continue with IVFs & daily BMPs Stasis dermatitis - No open or draining wounds; Will elevate legs in bed when sitting - Monitor, expect to improve with diuresis - WC consulted HTN - Home lasix and lisinopril now that renal function & CPK have improved - BP ranging 150-160/70-80s - Will start low dose amlodipine and monitor for worsening LE swelling DM2 - A1c 7.5 so DM decently controlled - mod SS; Will restart home metformin Prolonged QTc - aware, patient asymptomatic, no palpitations, will continue to monitor Code: FULL Dispo: pending placement at SNF Addendum - Attending - Attending Attestation Date/Time: 12/01/18 1151 I personally evaluated the patient and discussed the management with Dr. Cintron I agree with the History, Examination, Assessment and Plan documented above with any addition or exceptions noted below. Dementia- pleasant and at baseline s/p fall and deconditioning- continue PT and await SNF placement. Stable for d/ c.
[2018-12-01] MEDS: Amlodipine 5 MG TAB PO SCH (08:49)
[2018-12-01] MEDS: Furosemide 40 MG TAB PO SCH (08:49)
[2018-12-01] MEDS: Lisinopril 20 MG TAB PO SCH (08:49)
[2018-12-01] MEDS: Cyanocobalamin (Vitamin B-12) 1,000 MCG TAB PO SCH ×2 (08:49→20:14)
[2018-12-01] MEDS: metFORMIN 500 MG TAB PO SCH ×2 (08:49→17:53)
[2018-12-01] MEDS: Folic Acid 1 MG TAB PO SCH (08:50)
[2018-12-01] MEDS: Multivitamin W/ Minerals 1 TAB PO SCH ×2 (08:50→20:14)
[2018-12-01] MEDS: Enoxaparin Sodium 40 MG/0.4 ML SYRINGE SC SCH (08:50)
[2018-12-01] MEDS: Calcium Carbonate + Vit D 1 TAB PO SCH ×2 (08:50→17:53)
[2018-12-01] MEDS: Atorvastatin Calcium 40 MG TAB PO SCH (20:14)
--- NOTE | 2018-12-02 06:57 | PDOC.FM ---
- Subjective Subjective: NAEO. Patient reports regular BM. No delusions or hallucinations came up in conversation this morning. No complaints or concerns. - Objective MAR Reviewed: Yes Vital Signs & Weight: Vital Signs (12 hours) Temp Pulse Resp BP Pulse Ox 12/01/18 19:00 98.6 F 60 20 145/66 H 94 L Weight Admit Weight 154.87 kg Weight 154.873 kg I&O: 11/30/18 12/01/18 12/02/18 06:59 06:59 06:59 Intake Total 650 900 Output Total 1250 1700 Balance -600 -800 Result Diagrams: 11/28/18 06:19 11/30/18 06:42 Phys Exam - Physical Examination Constitutional: NAD HEENT: PERRLA, moist MMs, sclera anicteric Neck: supple, full ROM Respiratory: clear to auscultation bilateral Cardiovascular: RRR Gastrointestinal: soft, non-tender, no distention, positive bowel sounds Neurological: non-focal, moves all 4 limbs Psychiatric: normal affect, A&O x 3 Dx/Plan (1) Acute encephalopathy Code(s): G93.40 - ENCEPHALOPATHY, UNSPECIFIED Status: Acute (2) CKD (chronic kidney disease) Code(s): N18.9 - CHRONIC KIDNEY DISEASE, UNSPECIFIED Status: Acute (3) Dementia with psychosis Code(s): F03.91 - UNSPECIFIED DEMENTIA WITH BEHAVIORAL DISTURBANCE Status: Acute (4) Diabetes type 2, controlled Code(s): E11.9 - TYPE 2 DIABETES MELLITUS WITHOUT COMPLICATIONS Status: Acute (5) Hypertension Code(s): I10 - ESSENTIAL (PRIMARY) HYPERTENSION Status: Acute (6) Metabolic acidosis Code(s): E87.2 - ACIDOSIS Status: Acute (7) Rhabdomyolysis Code(s): M62.82 - RHABDOMYOLYSIS Status: Acute - Plan Plan: Dementia with hallucinations, improved Pt w/ hx of MRI brain in October 2018 shows amyloid deposits, likely worsening progression dementia - Brain CT & CXR negative on presentation to the ED; Less likely infectious etiology as patient was non-toxic appearing and vitals were WNL; procal 0.4 - TSH low but T4 WNLs. B12, Mg, & phos WNLs but folate low at 3.2. Will start on QD supplementation. - UA showed 1+ bacteria and small bld, Cx now growth to date - Will frequently reorient and try to keep patient awake during the day so he will sleep well at night. - CM consulted - SNF placement ready Rhabdomyolysis, resolved - CPK downtrending since admission - Encourage PO hydration DINA vs CKD, resolved - no recent creatinine for comparison but downtrending - daily BMPs Diarrhea, functional - likely not C diff, will continue to monitor Non-AG metabolic acidosis - slightly improved - Will continue with IVFs & daily BMPs Stasis dermatitis - No open or draining wounds; Will elevate legs in bed when sitting - Monitor, expect to improve with diuresis - WC consulted HTN - Home lasix and lisinopril now that renal function & CPK have improved - BP ranging 150-160/70-80s - Will start low dose amlodipine and monitor for worsening LE swelling DM2 - A1c 7.5 so DM decently controlled - mod SS; Will restart home metformin Prolonged QTc - aware, patient asymptomatic, no palpitations, will continue to monitor Code: FULL Dispo: Placed at SNF, will be discharged today Addendum - Attending - Attending Attestation Date/Time: 12/02/18 3259 I personally evaluated the patient and discussed the management with Dr. Vail I agree with the History, Examination, Assessment and Plan documented above with any addition or exceptions noted below. Stable for d/c to SNF
[2018-12-02] MEDS: Furosemide 40 MG TAB PO SCH (08:11)
[2018-12-02] MEDS: metFORMIN 500 MG TAB PO SCH (08:11)
[2018-12-02] MEDS: Multivitamin W/ Minerals 1 TAB PO SCH (08:11)
[2018-12-02] MEDS: Calcium Carbonate + Vit D 1 TAB PO SCH (08:11)
[2018-12-02] MEDS: Lisinopril 20 MG TAB PO SCH (08:11)
[2018-12-02] MEDS: Cyanocobalamin (Vitamin B-12) 1,000 MCG TAB PO SCH (08:12)
[2018-12-02] MEDS: Amlodipine 5 MG TAB PO SCH (08:13)
[2018-12-02] MEDS: Enoxaparin Sodium 40 MG/0.4 ML SYRINGE SC SCH (08:13)
[2018-12-02] MEDS: Folic Acid 1 MG TAB PO SCH (08:13)
[2018-12-02] MEDS ORDERED: CEFAZOLIN 2 GM/50 ML BAG ONE (09:01)
[2018-12-02 10:50] VITALS: BP 142/69; TEMP 97.8
--- NOTE | 2018-12-03 22:04 | EKG ---
Test Reason : Blood Pressure : / mmHG Vent. Rate : 071 BPM Atrial Rate : 071 BPM P-R Int : 200 ms QRS Dur : 112 ms QT Int : 432 ms P-R-T Axes : 058 -53 046 degrees QTc Int : 469 ms Normal sinus rhythm Left axis deviation Prolonged QT Abnormal ECG Confirmed by JOSÉ ANTONIO TERESA, ALEN ([id number]), book or script editor ANEUDY GONSALES ([id number]) on 12/03/2018 10:04:02 PM Referred By: Confirmed By:ALEN CHOU MD
--- NOTE | 2018-12-05 10:55 | DIS ---
DATE OF ADMISSION: 11/26/2018 DATE OF DISCHARGE: 12/02/2018 RESIDENT: Yanet Cintron MD. ADMITTING ATTENDING: Dr. Lopez. DISCHARGE ATTENDING: Dr. Lopez. CONSULTS: Case Management, PT/OT, and Wound Care. PROCEDURES: None. PRIMARY DIAGNOSES: Dementia, auditory hallucinations resolved, rhabdomyolysis resolved, acute kidney injury versus chronic kidney disease, resolved. SECONDARY DIAGNOSES: Functional diarrhea, stasis dermatitis, hypertension, diabetes type 2, prolonged QTc. DISCHARGE MEDICATIONS: 1. Norvasc 5 mg oral daily. 2. Calcium carbonate plus vitamin D one tablet oral twice daily with meals. 3. Vitamin B12, 500 mcg oral twice daily. 4. Folic acid 1 mg oral daily. 5. Furosemide 40 mg oral daily. 6. Metformin 500 mg oral twice daily with meals. 7. Atorvastatin 80 mg oral daily. 8. Lisinopril 40 mg oral daily. Discontinued medications: None. HISTORY OF PRESENT ILLNESS/HOSPITAL COURSE: This is a 73-year-old male with past medical history of memory impairment, brought in by EMS after a fall. The patient lived by himself in a trailer home and was found on the floor by his neighbor, who called EMS. Reportedly, the patient had been on the floor for the past 10 days and reported being visited by [facility] doctor from [place], which had picked him up from the floor and had returned from there. The patient at the time of telling the story says that he knows that it sounds crazy and acknowledges that, but states it felt real at the time. The patient also said that he had noticed worsening memory in the past 6 months and does not seem very distressed by any of this. Of note, the patient had an MRI last October that showed amyloidosis deposits but has not had followup for this. The patient does not have any psychiatric history. The patient denies any pain from the fall. No chest pain, palpitations, syncope, or seizure. The patient reports that he has not been taking any of his medications for the past 10 days. In the ED, the patient had a CT brain, chest x-ray, and pelvis x-ray, all negative for any fracture or acute process. The patient's vital signs on presentation were within normal limits. The patient was found to have a white count of 12.4, BUN of 26, and creatinine of 1.45. On presentation, the patient had a creatine kinase of 2254 indicating rhabdomyolysis, which trended down by the end of the stay to 360. The patient has rhabdomyolysis , presumably due to being down for 10 days with resolution. The patient's kidney function also improved throughout his stay and was within normal limits by the end of his stay. The patient's troponins were negative x3 on presentation. The patient was given Ancef with a procal of 0.53. The patient remained afebrile throughout his stay and antibiotics were discontinued. The patient was found to have encephalopathy secondary to hypovolemia as well as dementia with hallucinations. The patient denied any delusions or hallucinations throughout his stay. The patient had resolution of rhabdomyolysis as well as hypovolemia. The patient was approved for [facility]. The patient worked with physical therapy throughout his stay and was increasingly gaining strength. DISPOSITION: Stable. DISCHARGE INSTRUCTIONS: 1. Location: long-term facility. 2. Activity: Ad-michael with considering PT and OT. 3. Diet: Diabetic diet, heart healthy, and low sodium. 4. Follow up with PCP (Dr. Pisano of [facility]) within 1 week. [facility] ID: [id number] [facility]
== END 2018-12-02 13:23 | DRG 557 ==
LOC: ERS 12:59 → ERHOLD 15:36 → OBSVTOIN 15:36 → T4-B 11-27 12:33
PROVIDERS: ADMIT Family Medicine; ATTEND Family Medicine
DX: M62.82 Rhabdomyolysis (principal); G93.41 Metabolic encephalopathy; E87.2 Acidosis; E78.5 Hyperlipidemia, unspecified; E11.22 Type 2 diabetes mellitus with diabetic chronic kidney disease; I12.9 Hypertensive chronic kidney disease with stage 1 through stage 4 chronic kidney disease, or unspecified chronic kidney disease; F03.90 Unspecified dementia, unspecified severity, without behavioral disturbance, psychotic disturbance, mood disturbance, and anxiety; N18.3 Chronic kidney disease, stage 3 (moderate); I87.2 Venous insufficiency (chronic) (peripheral); Z66 Do not resuscitate; I45.81 Long QT syndrome; Z96.653 Presence of artificial knee joint, bilateral; Z90.49 Acquired absence of other specified parts of digestive tract
CPT/HCPCS: 36415; 36416; 70450; 71045; 72170; 80048; 80053; 80306; 80307; 82550; 82607; 82746; 83036; 83605; 83735; 84100; 84145; 84439; 84443; 84484; 85007; 85025; 85027; 87086; 90471; 90662; 90715; 93005; 96360; 96361; G0008; J1650; J1815; J7120

== ENCOUNTER 2019-03-08 11:01 | Inpatient (IN) | payer MEDICARE ==
[2019-03-08 11:41] LABS: #Lymphocytes 0.9 thou/uL (1.20-3.40); #Monocytes 0.9 thou/uL (0.11-0.59); #Neutrophils 10.5 thou/uL (1.40-6.50); %Eosinophils 0.3 % (0.0-10.0); %Lymphocytes 6.9 % (21.0-51.0); %Monocytes 7.6 % (0.0-10.0); %Neutrophils 85.2 % (42.0-75.0); Hemoglobin 13.8 g/dL (14.0-18.0); Mean Corpuscular HGB CONC 31.7 g/dL (32.0-36.0); Mean Corpuscular Hemoglobin 30.2 pg (27.0-31.0); Mean Corpuscular Volume 95.3 fL (78.0-98.0); Mean Platelet Volume 7.6 fL (7.4-10.4); Platelet Count 163 thou/uL (130-400); RBC Distribution Width 12.6 % (11.5-14.5); Red Blood Cell (RBC) Count 4.58 mill/uL (4.70-6.10); White Blood Cell (WBC) Count 12.4 thou/uL (4.8-10.8)
[2019-03-08 12:05] LABS: ALT (SGPT) 12 U/L (8-55); AST (SGOT) 20 U/L (5-34); Alkaline Phosphatase 48 U/L (40-150); Anion Gap 14 mmol/L (10-20); BUN (Urea Nitrogen) 24 mg/dL (8.4-25.7); Bilirubin, Total 0.7 mg/dL (0.2-1.2); CK (CPK) 304 U/L (30-200); Calc. Creatinine Clearance 0 mL/min (70-130); Calcium 9.3 mg/dL (7.8-10.44); Carbon Dioxide 24 mmol/L (23-31); Chloride 107 mmol/L (98-107); Estimated GFR-MDRD 43; Globulin 3.9 g/dL (2.4-3.5); Glucose 131 mg/dL (83-110); Potassium 4.6 mmol/L (3.5-5.1); Protein, Total 6.9 g/dL (5.8-8.1); Sodium 140 mmol/L (136-145)
--- NOTE | 2019-03-08 12:13 | RAD ---
Portable frontal chest radiograph: 03/08/2019 COMPARISON: 11/26/2018 HISTORY: Fall, left-sided deficits FINDINGS: Lungs are clear. Cardiac silhouette is prominent, which may signify magnification and/or en largement. Mild superior mediastinal widening, which may be technical in nature. Chest could be better assessed with PA and lateral imaging if clinically warranted. Supine imaging provided, limitin g assessment for pneumothorax and pleural fluid. IMPRESSION: Limited supine imaging demonstrates no focal consolidation or alveolar edema.
--- NOTE | 2019-03-08 12:15 | RAD ---
Frontal and lateral imaging of the right tibia/fibula: 03/08/2019 COMPARISON: None HISTORY: Fall, pain FINDINGS: Right knee arthroplasty noted. There is diffuse soft tissue swelling noted medially and lat erally at the level of the lower leg and ankle. There is atherosclerotic calcification posteriorly at the level of the ankle. No displaced fracture or evidence of dislocation is noted. IMPRESSION: Soft tissue swelling with no displaced fracture or dislocation seen.
--- NOTE | 2019-03-08 12:16 | RAD ---
3 views left foot: 03/08/2019 COMPARISON: None HISTORY: Injury, trauma, pain FINDINGS: 3 mm metallic foreign body noted within the soft tissues lateral to the mid shaft left fift h metatarsal. This is located in the plantar aspect of the foot on the lateral view. There is prominent nonspecific diffuse soft tissue swelling involving the regions of the ankle and the dorsal aspect of the foot. There is enthesophyte formation at the origin of the plantar aponeurosis. There is degenerative change at the first metatarsal-phalangeal joint. No displaced fracture or evidence of dislocation seen. IMPRESSION: Soft tissue swelling. No displaced fracture or dislocation. 3 mm soft tissue foreign body as above.
--- NOTE | 2019-03-08 12:21 | RAD ---
LEFT LEG TWO VIEWS: HISTORY: Left leg pain. FINDINGS: The left tibia and fibula are intact. There are postop changes of total knee arthroplasty. POS: [facility]
[2019-03-08] MEDS ORDERED: Piperacillin/Tazobactam 4.5 GM VIAL ONE (12:24)
[2019-03-08] MEDS ORDERED: Dextrose 5% in Water 1,000 ML IV PRN (17:19)
[2019-03-08] MEDS ORDERED: Ondansetron ODT 4 MG TAB PO PRN (17:19)
[2019-03-08] MEDS ORDERED: Dextrose 50% Abboject 50 ML SYRINGE SLOW IVP PRN (17:19)
[2019-03-08] MEDS ORDERED: HumaLOG 300 UNITS/3 ML VIAL SC PRN (17:19)
[2019-03-08 17:39] LABS: Bilirubin Negative (Negative); Blood, Urine Negative (Negative); Clarity CLEAR (Clear); Glucose, Urine (Dipstick) Negative (Negative); Leukocyte Trace (Negative); Nitrite Negative (Negative); Protein, Urine (Dipstick) Trace mg/dL (Neg-Trace); Specific Gravity, Urine 1.022 (1.002-1.036)
[2019-03-08 17:41] LABS: Pathc Cast-AUWi Flag 0.95 (0-2.49); Squamous Epithelial 0-3 HPF (0-3); WBC/HPF 0-3 HPF (0-3)
[2019-03-08 17:50] VITALS: BMI 40.8
[2019-03-08 17:53] LABS: Bacteria/HPF Rare-Few HPF (None Seen); Hyaline Casts/LPF NONE SEEN LPF (0-3 Hyaline); RBC/HPF None Seen HPF (0-3)
[2019-03-08] MEDS: Lactated Ringer's 1,000 ML IV SCH (18:24)
--- NOTE | 2019-03-08 18:30 | CT ---
BRAIN CT WITHOUT IV CONTRAST: 03/08/19 HISTORY: Found down. Patient cannot remember fall. History of TIA. COMPARISON: 11/26/18. FINDINGS: Bilateral atrophy and chronic white matter ischemic changes. There is complete opacification of the right sphenoid sinus with some mucosal disease in the maxillary and ethmoid sinuses. The mastoids pranay ear clear of acute process. No intracranial mass or acute hemorrhage. Small right periventricular lac unar infarct, stable. IMPRESSION: Focal area of right frontal dural calcific thickening, stable. No mass or bleed. IMPRESSION: Atrophy and chronic white matter ischemic changes. Stable appearance from prior study. NO mass or bl eed. Stable sinus mucosal disease. POS: [facility]
--- NOTE | 2019-03-08 18:45 | PDOC.FPRHP ---
- History of Present Illness Chief Complaint: "Found down" History of Present Illness: 74 year old male with history of dementia, CKD stage 4, stasis dermatitis, HLD, HTN, and DM type II presents after being "found down" by HH. HH reportedly attempted to contact patient several times over the course of the last few days and were unsuccessful. They went out to his house today and patient was unable to answer door. Patient reports that he was able to tell the HH personnel to get the neighbor as he could not get up off the floor to open the door. He thinks he was "out" for three days laying on the ground. He denies any hallucinations but cannot remember any events over the last week. Patient states that his mother on March 02 and he was unable to attend her . The Senior Aide that was present with patient states that the patient has difficulty at home by himself. Patient's sister has been trying to [facility] where someone can be with him at home during most parts of the day. Despite decline in cognitive function, patient still thinks he is able to perform all of his ADL's. On presentation, however, patient appears disheveled. Many family members and friends have voiced their concerns about his safety at home. Patient has adamantly refused placement in NH in the past. He does have HH services. Patient denies any fever, chills, shortness of breath , headaches, N/V, or chest pain. Of note, patient had a similar episode in Nov of this year. He was experiencing hallucinations at that time and claimed to have been down for several days then as well. He was worked up for stroke and other causes of encephalopathy which were all negative. Patient was sent to rehab and was there for several weeks before being released home. He followed up shortly after rehab, but I have not personally seen him in clinic since then. Patient has reportedly lost driving privileges due to vision. He has someone that drives him around to appointments. Patient was noted to have amyloid deposits on MRI of brain performed several months ago. These amyloid deposits may represent cerebral amyloid angiopathy vs. AD. Patient's short term memory is nearly non-existent. He does not remember conversations he has with people an hour later. ED Course: Patient was given Vanc 1 g and Zosyn 4.5 g in the ED. - Allergies/Adverse Reactions Allergies Allergy/AdvReac Type Severity Reaction Status Date / Time No Known Allergies Allergy Verified 11/27/18 13:22 - Home Medications Medication Instructions Recorded Confirmed Type Atorvastatin Calcium 80 mg PO DAILY 11/27/18 11/27/18 History Furosemide 40 mg PO DAILY 11/27/18 11/27/18 History Lisinopril 40 mg PO DAILY 11/27/18 11/27/18 History metFORMIN HCl 500 mg PO BID-WM 11/27/18 11/27/18 History Amlodipine [Norvasc] 5 mg PO DAILY #30 tab 11/29/18 Rx Calcium Carbonate + Vit D 1 tab PO BID-WM #30 tab 11/29/18 Rx [Caltrate 600 + Vit D] Cyanocobalamin (Vitamin B-12) 500 mcg PO BID #30 tab 11/29/18 Rx [Vitamin B-12] Folic Acid [Folvite] 1 mg PO DAILY #30 tab 11/29/18 Rx - History PMHx: HTN, DM2, 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 Denies drug or alcohol use. - Review of Systems General: denies: fever/chills, weight/appetite/sleep changes Eyes: reports: vision changes (Declining vision) ENT: denies: nasal congestion, rhinorrhea Respiratory: denies: cough, congestion, shortness of breath Cardiovascular: reports: edema (L>R). denies: chest pain Gastrointestinal: denies: nausea, vomiting, diarrhea Genitourinary: denies: dysuria, polyuria Skin: reports: other (redness of left lower extremity). denies: lesions Musculoskeletal: denies: pain, tenderness, stiffness Neurological: reports: numbness (fingers), weakness Psychological: denies: anxiety, depression - Vital signs BP: 170/83 HR: 97 RR: 20 Tmax: 97.7F Pox: 97% on RA Wt: 144 kg - Physical Exam -Constitutional: A&O x3, but unaware of specifics regarding time. Appears disheveled. HEENT: EOMI, MMM Heart: RRR, no murmurs/rubs/gallops Lungs: CTAB, no respiratory distress Abdomen: soft, non-tender, no masses/distention Musculoskeletal: ROM grossly normal Neurological: no focal deficit, CN II-XII intact -Neurological: Strength 5/5 in upper and lower extremities bilaterally Heme/Lymphatic: no unusual bruising or bleeding, no purpura -Heme/Lymphatic: Warmth, erythema, and edema of left lower extremity to level of mid calf Psychiatric: other (short term memory impaired. poor insight and judgment) FMR H&P: Results - Labs Result Diagrams: 03/09/19 05:23 03/09/19 05:23 Lab results: WBC 12.4 thou/uL (4.8-10.8) H 03/08/19 11:28 Hgb 13.8 g/dL (14.0-18.0) L 03/08/19 11:28 Hct 43.6 % (42.0-52.0) 03/08/19 11:28 MCV 95.3 fL (78.0-98.0) 03/08/19 11:28 Plt Count 163 thou/uL (130-400) 03/08/19 11:28 Neutrophils % 85.2 % (42.0-75.0) H 03/08/19 11:28 Sodium 140 mmol/L (136-145) 03/08/19 11:28 Potassium 4.6 mmol/L (3.5-5.1) 03/08/19 11:28 Chloride 107 mmol/L (98-107) 03/08/19 11:28 Carbon Dioxide 24 mmol/L (23-31) 03/08/19 11:28 BUN 24 mg/dL (8.4-25.7) 03/08/19 11:28 Creatinine 1.59 mg/dL (0.7-1.3) H 03/08/19 11:28 Glucose 131 mg/dL (83-110) H 03/08/19 11:28 Calcium 9.3 mg/dL (7.8-10.44) 03/08/19 11:28 Total Bilirubin 0.7 mg/dL (0.2-1.2) 03/08/19 11:28 AST 20 U/L (5-34) 03/08/19 11:28 ALT 12 U/L (8-55) 03/08/19 11:28 Alkaline Phosphatase 48 U/L (40-150) 03/08/19 11:28 Creatine Kinase 304 U/L (30-200) H 03/08/19 11:28 Serum Total Protein 6.9 g/dL (5.8-8.1) 03/08/19 11:28 Albumin 3.0 g/dL (3.4-4.8) L 03/08/19 11:28 Urine Ketones Trace mg/dL (Negative) H 03/08/19 16:39 Urine Blood Negative (Negative) 03/08/19 16:39 Urine Nitrite Negative (Negative) 03/08/19 16:39 Ur Leukocyte Esterase Trace (Negative) H 03/08/19 16:39 Urine RBC None Seen HPF (0-3) 03/08/19 16:39 Urine WBC 0-3 HPF (0-3) 03/08/19 16:39 Ur Squamous Epith Cells 0-3 HPF (0-3) 03/08/19 16:39 Urine Bacteria Rare-Few HPF (None Seen) 03/08/19 16:39 - Radiology Interpretation CT scan - head Status: image reviewed by me, report reviewed by me Additional comment: no acute findings FMR H&P: A/P - Problem List (1) Delirium Current Visit: Yes Status: Acute Code(s): R41.0 - DISORIENTATION, UNSPECIFIED (2) Dementia Current Visit: Yes Status: Acute Code(s): F03.90 - UNSPECIFIED DEMENTIA WITHOUT BEHAVIORAL DISTURBANCE (3) Acute encephalopathy Current Visit: No Status: Acute Code(s): G93.40 - ENCEPHALOPATHY, UNSPECIFIED (4) CKD (chronic kidney disease) Current Visit: No Status: Chronic Code(s): N18.9 - CHRONIC KIDNEY DISEASE, UNSPECIFIED (5) Diabetes type 2, controlled Current Visit: No Status: Chronic Code(s): E11.9 - TYPE 2 DIABETES MELLITUS WITHOUT COMPLICATIONS (6) Hypertension Current Visit: No Status: Chronic Code(s): I10 - ESSENTIAL (PRIMARY) HYPERTENSION (7) Left leg cellulitis Current Visit: Yes Status: Acute Code(s): L03.116 - CELLULITIS OF LEFT LOWER LIMB - Plan 74 year old male presents to ED after being "found down" Encephalopathy vs. delirium in setting of underlying dementia - Patient with similar event in 11/2018 - CT brain negative for any acute events - Patient is personal clinic patient of [facility]; he appears at baseline from recent visits - Will consult neurology for opinion regarding dementia; 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 on MRI done recently - Infectious etiology includes LLE cellulitis; infection does not appear systemic; however, blood cultures are pending, procal pending, and patient has received 1 dose of Vanc and 1 dose of Zosyn. Patient started on oral cephalexin. Will initiate IV therapy if patient declines or there is evidence of potential for severe infection based on procal. - Patient has had very thorough workup in past including vitamin deficiencies, depression screening, syphilis screening, etc. - Patient not safe at home, and I do not believe he has the capacity at this time to make complex medical decisions; I will attempt to get in contact with his sister who is his closest living relative. - Possibility that patient could be having seizures, although this seems less likely. - No localized deficits to suggest CVA and CT brain negative for acute findings - Most likely etiology is delirium in the setting of dementia; patient had recent life stressor with passing of his mother less than one week ago LLE cellulitis - Erythematous, warm, with mild white count - Has not failed antibiotic treatment - Will start on oral cephalexin with dose adjusted for kidney function - Blood cultures pending - Given 4.5 g zosyn and 1 g vanc in ED x1 - Procalcitonin pending - Will transition to IV abx if patient clinically deteriorates or shows evidence of severe infection Deconditioning - Would benefit from clinical services manager placement vs. rehab - Consult PT/OT HTN - Continue home medications - PRN for SBP >180 HLD - Continue home medications DM Type II - Continue home medications - Hyperglycemia protocol CKD stage IV 2/2 HTN and diabetic nephropathy - Follows with nephro - Avoid nephrotoxic agents and adjust medications accordingly - Appears at baseline Dispo: Admit to medical for encephalopathy. Consult neurology for recommendations. Continue treatment for cellulitis. Case discussed in detail with Dr. Kingston who has seen and evaluated patient. Kathryn Pisano DO PGY-2 FMR H&P: Upper Level - Plan Date/Time: 03/08/19 1831 I, [], have evaluated this patient and agree with findings/plan as outlined by auditor internal resident. Pertinent changes/additions are listed here. Addendum - Attending - Attending Attestation Date/Time: 03/09/19 0805 I personally evaluated the patient and discussed the management with Dr. Peterson yesterday at the time of admission. I agree with the History, Examination, Assessment and Plan documented above with any addition or exceptions noted below. Based on my interview with Mr. Callaway, in my opinion, Mr. Callaway has diminished capacity for informed consent. I think he will struggle to demonstrate understanding and reasoning of complex medical conditions and treatment plans. But for straightforward problems and treatments he has capacity to exercise informed consent.
[2019-03-08] MEDS: Acetaminophen 325 MG TAB PO PRN (20:41)
[2019-03-08] MEDS: Enoxaparin Sodium 40 MG/0.4 ML SYRINGE SC SCH (20:41)
[2019-03-08] MEDS: Cephalexin 250 MG/5 ML Oral Suspension PO SCH ×2 (20:41→21:39)
[2019-03-09] MEDS: Lactated Ringer's 1,000 ML IV SCH ×2 (02:05→08:20)
[2019-03-09 05:52] LABS: #Eosinphils 0.1 thou/uL (0.0-0.7); #Lymphocytes 0.8 thou/uL (1.20-3.40); #Monocytes 0.6 thou/uL (0.11-0.59); #Neutrophils 6.7 thou/uL (1.40-6.50); %Eosinophils 1.8 % (0.0-10.0); %Lymphocytes 9.3 % (21.0-51.0); %Monocytes 7.2 % (0.0-10.0); %Neutrophils 81.8 % (42.0-75.0); Hemoglobin 12.8 g/dL (14.0-18.0); Mean Corpuscular HGB CONC 32.1 g/dL (32.0-36.0); Mean Corpuscular Hemoglobin 30.3 pg (27.0-31.0); Mean Corpuscular Volume 94.3 fL (78.0-98.0); Mean Platelet Volume 7.6 fL (7.4-10.4); Platelet Count 159 thou/uL (130-400); RBC Distribution Width 12.6 % (11.5-14.5); Red Blood Cell (RBC) Count 4.24 mill/uL (4.70-6.10); White Blood Cell (WBC) Count 8.2 thou/uL (4.8-10.8)
[2019-03-09] MEDS: HumaLOG 300 UNITS/3 ML VIAL SC PRN ×3 (05:52→16:27)
[2019-03-09 06:00] LABS: Anion Gap 13 mmol/L (10-20); BUN (Urea Nitrogen) 23 mg/dL (8.4-25.7); Calc. Creatinine Clearance 81 mL/min (70-130); Calcium 8.7 mg/dL (7.8-10.44); Carbon Dioxide 23 mmol/L (23-31); Chloride 109 mmol/L (98-107); Estimated GFR-MDRD 42; Glucose 182 mg/dL (83-110); Potassium 4.5 mmol/L (3.5-5.1); Sodium 140 mmol/L (136-145)
[2019-03-09] MEDS: Cephalexin 250 MG/5 ML Oral Suspension PO SCH ×3 (08:19→21:10)
[2019-03-09] MEDS: Enoxaparin Sodium 40 MG/0.4 ML SYRINGE SC SCH ×2 (08:19→21:10)
--- NOTE | 2019-03-09 10:37 | PDOC.FM ---
- Subjective Subjective: Patient doing better this AM. No significant overnight events. Patient alert and oriented x3. Patient denies chest pain, shortness of breath, palpitations, or N/V. Patient seemed more with it this morning, although his mental status seems to wax and wane, and he is often honest about not remembering conversations from 1-2 hours prior. He has been declining over the past several months. This is the second time patient has been seen over the last 3 months for failing to respond to phone calls, etc. He is then found in his own feces. It is uncertain if he loses consciousness, falls and is unable to get up, or if he is losing track of time 2/2 dementia. - Objective MAR Reviewed: Yes Vital Signs & Weight: Vital Signs (12 hours) Temp Pulse Resp BP Pulse Ox 03/09/19 07:40 98.4 F 60 18 125/74 96 03/09/19 05:32 98.6 F 69 20 125/66 91 L 03/09/19 00:00 98.2 F 64 18 127/75 98 Weight Weight 144.1 kg I&O: 03/08/19 03/09/19 03/10/19 06:59 06:59 06:59 Intake Total 1414 240 Balance 1414 240 Result Diagrams: 03/09/19 05:23 03/09/19 05:23 Radiology Reviewed by me: Yes Phys Exam - Physical Examination Constitutional: NAD HEENT: moist MMs Respiratory: clear to auscultation bilateral Cardiovascular: RRR, no significant murmur Gastrointestinal: soft, no distention obese Musculoskeletal: no edema (LLE) Neurological: non-focal, moves all 4 limbs Psychiatric: A&O x 3 (This AM) Skin: cap refill <2 seconds Deviation from normal: Erythema and warmth of LLE, improved today Dx/Plan (1) Delirium Code(s): R41.0 - DISORIENTATION, UNSPECIFIED Status: Acute (2) Dementia Code(s): F03.90 - UNSPECIFIED DEMENTIA WITHOUT BEHAVIORAL DISTURBANCE Status: Acute (3) Acute encephalopathy Code(s): G93.40 - ENCEPHALOPATHY, UNSPECIFIED Status: Acute (4) CKD (chronic kidney disease) Code(s): N18.9 - CHRONIC KIDNEY DISEASE, UNSPECIFIED Status: Chronic (5) Diabetes type 2, controlled Code(s): E11.9 - TYPE 2 DIABETES MELLITUS WITHOUT COMPLICATIONS Status: Chronic (6) Hypertension Code(s): I10 - ESSENTIAL (PRIMARY) HYPERTENSION Status: Chronic (7) Left leg cellulitis Code(s): L03.116 - CELLULITIS OF LEFT LOWER LIMB Status: Acute - Plan Plan: 74 year old male presents to ED after being "found down" Encephalopathy vs. delirium in setting of underlying dementia - Patient with similar event in 11/2018, no overt etiology determined - CT brain negative for any acute events - Consulted neurology for opinion regarding dementia; 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 on MRI done recently. These are unusual findings and would like second opinion. - Infectious etiology includes LLE cellulitis; infection does not appear systemic; however, blood cultures are pending and patient has received 1 dose of Vanc and 1 dose of Zosyn. Patient started on oral cephalexin. Will initiate IV therapy if patient declines or there is evidence of potential for severe infection. Procal elevated at 6 but is trending down on oral therapy - Patient has had very thorough workup in past including vitamin deficiencies, depression screening, syphilis screening, etc. - Patient not safe at home, and I do not believe he has the capacity at this time to make complex medical decisions; I will attempt to get in contact with his sister who is his closest living relative; patient unable to provide me with her number as he cannot remember. - Possibility that patient could be having seizures, although this seems less likely. - No localized deficits to suggest CVA and CT brain negative for acute findings - Most likely etiology is delirium in the setting of dementia; patient had recent life stressor with passing of his mother less than one week ago - Patient A&O x3 LLE cellulitis - Erythematous, warmth, with mild white count - Has not failed antibiotic treatment - Will start on oral cephalexin with dose adjusted for kidney function - Blood cultures pending - Given 4.5 g zosyn and 1 g vanc in ED x1 - Procalcitonin elevated but trending down - Will transition to IV abx if patient clinically deteriorates or shows evidence of severe infection Deconditioning - Would benefit from penitentiary placement vs. rehab - Consult PT/OT HTN - Continue home medications - PRN for SBP >180 HLD - Continue home medications DM Type II - Continue home medications - Hyperglycemia protocol CKD stage IV 2/2 HTN and diabetic nephropathy - Follows with nephro - Avoid nephrotoxic agents and adjust medications accordingly - Appears at baseline Dispo: Pending neurology recs. Patient will need placement upon d/c. Addendum - Attending - Attending Attestation Date/Time: 03/09/19 1129 I personally evaluated the patient and discussed the management with Dr. Pisano. I agree with the History, Examination, Assessment and Plan documented above with any addition or exceptions noted below. Patient here after being "found down" at home with alteration of consciousness. His labs are overall stable. He had initially what appeared to be LLE cellulitis that is improving with abx currently. PCT downtrending and will trend tomorrow. WBC downtrending as well. Renal function stable. He had MRI that shows amyloid deposition in association with some fairly drastic changes in mentation over the last few months. Patient with very poor short term memory and now appears to be incapable of caring for himself at home as this is second presentation to hospital for similar issues. Neurology has been consulted to hopefully give us some clarity of his neurological diagnosis and we will appreciate that clarity. Patient will likely need placement upon d/c as it does not appear to be safe for him to return home alone in his current state.
[2019-03-09] MEDS: Acetaminophen 325 MG TAB PO PRN (21:10)
--- NOTE | 2019-03-09 22:51 | CON ---
DATE OF CONSULTATION: 03/09/2019 CONSULTING PHYSICIAN: [facility]. IMPRESSION: Transient episode of amnesia of unknown etiology. PLAN: 1. Ammonia level, cortisol, B12, T4. 2. EEG. 3. MRI of the brain with contrast. HISTORY OF PRESENT ILLNESS: Mr. Callaway is a 74-year-old man who lives alone in a trailer. He was apparently found down on the ground. He does not recall how he got there. He does recall EMS picking him up and putting him on a stretcher. He was brought into the hospital for evaluation. His CT scan of the brain showed some chronic small-vessel ischemic changes. His chest x-ray was clear. All his lab work was in normal range. His vital signs were stable on arrival and he has been afebrile since admission. He complains that he still feels like he is in a bit of a fog. He feels more unsteady on his feet in his normal state. Reportedly, he had some type of episode where he saw something in the house that did not make any sense prior to his arrival. There has possibly been one other episode where he lost a piece of time. He is not aware of any seizures or other neurologic issues in the past. Denies any lateralized weakness or numbness. PAST MEDICAL HISTORY: Hypertension, diabetes, hyperlipidemia. FAMILY HISTORY: Noncontributory. SOCIAL HISTORY: He denies any tobacco or alcohol use. REVIEW OF SYSTEMS: Ten-system review of system is otherwise unremarkable. PHYSICAL EXAMINATION: GENERAL: He is an overweight, elderly man who appears younger than his age. HEENT: Pupils are equal. Conjunctivae are clear. Oropharynx is clear. Cranium, normocephalic and atraumatic. NECK: Supple. EXTREMITIES: No cyanosis or edema. NEUROLOGIC: He was alert and oriented x3. His speech was fluent and clear. He followed commands appropriately. Cranial nerves were intact throughout other than diminished visual acuity. Motor exam showed good strength bilaterally. There was no asterixis or tremor present. Sensations intact to touch. SUMMARY: Elderly gentleman who had a transient episode of amnesia and questionable hallucinations. He seems to be lucid at this point. I would go ahead and proceed with further testing since the etiology remains unclear. Job ID: [id number]
[2019-03-10 06:13] LABS: #Eosinphils 0.2 thou/uL (0.0-0.7); #Lymphocytes 1.3 thou/uL (1.20-3.40); #Monocytes 0.4 thou/uL (0.11-0.59); #Neutrophils 4.4 thou/uL (1.40-6.50); %Basophils 0.3 % (0.0-1.0); %Eosinophils 3.9 % (0.0-10.0); %Lymphocytes 20.2 % (21.0-51.0); %Monocytes 6.6 % (0.0-10.0); Hemoglobin 12.6 g/dL (14.0-18.0); Mean Corpuscular HGB CONC 31.8 g/dL (32.0-36.0); Mean Corpuscular Hemoglobin 30.1 pg (27.0-31.0); Mean Corpuscular Volume 94.7 fL (78.0-98.0); Mean Platelet Volume 7.5 fL (7.4-10.4); Platelet Count 161 thou/uL (130-400); RBC Distribution Width 12.4 % (11.5-14.5); Red Blood Cell (RBC) Count 4.19 mill/uL (4.70-6.10); White Blood Cell (WBC) Count 6.4 thou/uL (4.8-10.8)
[2019-03-10 06:34] LABS: Anion Gap 10 mmol/L (10-20); BUN (Urea Nitrogen) 18 mg/dL (8.4-25.7); Calc. Creatinine Clearance 103 mL/min (70-130); Calcium 8.8 mg/dL (7.8-10.44); Carbon Dioxide 25 mmol/L (23-31); Chloride 109 mmol/L (98-107); Estimated GFR-MDRD 56; Glucose 119 mg/dL (83-110); Sodium 140 mmol/L (136-145)
[2019-03-10 06:52] LABS: T4 7.1 ug/dL (4.87-11.72)
--- NOTE | 2019-03-10 09:15 | PDOC.FM ---
- Subjective Subjective: Patient doing well this AM. No significant overnight events. Patient does not remember conversation with neurologist yesterday. He still does not want to go to [place], although he is agreeable to a short term facility. Patient states he wants to go home, sit on his porch, feed the birds, and talk to his cats. - Objective MAR Reviewed: Yes Vital Signs & Weight: Vital Signs (12 hours) Temp Pulse Resp BP Pulse Ox 03/10/19 07:50 98.0 F 62 22 H 129/71 94 L Weight Weight 144.1 kg I&O: 03/09/19 03/10/19 03/11/19 06:59 06:59 06:59 Intake Total 1414 830 Balance 1414 830 Result Diagrams: 03/10/19 05:54 03/10/19 05:54 EKG Reviewed by me: Yes Radiology Reviewed by me: Yes Phys Exam - Physical Examination Constitutional: NAD HEENT: moist MMs Respiratory: clear to auscultation bilateral Cardiovascular: RRR, no significant murmur Gastrointestinal: soft, no distention Chronic lymphedema bilaterally LE pulses difficult to palpate 2/2 edema Neurological: non-focal, moves all 4 limbs Psychiatric: A&O x 3 Deviation from normal: Unable to remember convo's from yesterday Deviation from normal: LLE erythema and warmth Dx/Plan (1) Delirium Code(s): R41.0 - DISORIENTATION, UNSPECIFIED Status: Acute (2) Dementia Code(s): F03.90 - UNSPECIFIED DEMENTIA WITHOUT BEHAVIORAL DISTURBANCE Status: Acute (3) Acute encephalopathy Code(s): G93.40 - ENCEPHALOPATHY, UNSPECIFIED Status: Acute (4) CKD (chronic kidney disease) Code(s): N18.9 - CHRONIC KIDNEY DISEASE, UNSPECIFIED Status: Chronic (5) Diabetes type 2, controlled Code(s): E11.9 - TYPE 2 DIABETES MELLITUS WITHOUT COMPLICATIONS Status: Chronic (6) Hypertension Code(s): I10 - ESSENTIAL (PRIMARY) HYPERTENSION Status: Chronic (7) Left leg cellulitis Code(s): L03.116 - CELLULITIS OF LEFT LOWER LIMB Status: Acute - Plan Plan: 74 year old male presents to ED after being "found down" Encephalopathy vs. delirium in setting of underlying dementia - Patient with similar event in 11/2018, no overt etiology determined - CT brain negative for any acute events - Consulted neurology for opinion regarding dementia; 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 on MRI done recently. These are unusual findings and would like second opinion. - Infectious etiology includes LLE cellulitis; infection does not appear systemic; however, blood cultures are pending and patient has received 1 dose of Vanc and 1 dose of Zosyn. Patient started on oral cephalexin. Will initiate IV therapy if patient declines or there is evidence of potential for severe infection. Procal continues to downtrend. - Patient has had very thorough workup in past including vitamin deficiencies, depression screening, syphilis screening, etc. - Patient not safe at home, and I do not believe he has the capacity at this time to make complex medical decisions; I will attempt to get in contact with his sister who is his closest living relative; patient unable to provide me with her number as he cannot remember. - Possibility that patient could be having seizures, although this seems less likely. EEG ordered per neurology. - No localized deficits to suggest CVA and CT brain negative for acute findings - Most likely etiology is delirium in the setting of dementia; patient had recent life stressor with passing of his mother less than one week ago - Patient A&O x3 - Neurology consulted; appreciate recs; ordered cortisol, vit B12, T4, EEG and repeat MRI LLE cellulitis - Erythematous, warmth, with mild white count - Continue oral cephalexin with dose adjusted for kidney function - Blood cultures pending; negative to date - Given 4.5 g zosyn and 1 g vanc in ED x1 - Procalcitonin downtrending - Will transition to IV abx if patient clinically deteriorates or shows evidence of severe infection Deconditioning - Would benefit from [facility] placement vs. rehab - Consult PT/OT HTN - Continue home medications - PRN for SBP >180 HLD - Continue home medications DM Type II - Continue home medications - Hyperglycemia protocol CKD stage IV 2/2 HTN and diabetic nephropathy - Follows with nephro - Avoid nephrotoxic agents and adjust medications accordingly - Appears at baseline Dispo: Neurology consulted. Appreciate recs. Will continue looking for placement and etiologies of possible encephalopathy. Addendum - Attending - Attending Attestation Date/Time: 03/10/19 1200 I personally evaluated the patient and discussed the management with Dr. Pisano I agree with the History, Examination, Assessment and Plan documented above with any addition or exceptions noted below- Patient denies any complaints. Afebrile VSS. A/P: 1) AMS - possibly dementia +/-delerium- appreciate neurology assistance; awaiting repeat labs. Appears back to baseline. Still with memory issues- did not remember seeing neurologist yesterday and found out from family that his mother did not pass away recently. 2) Cellulitis- improving; continue po abx. 3) D/c planning - will need placement; approved for [facility]; awaiting insurance approval.
[2019-03-10] MEDS: Cephalexin 250 MG/5 ML Oral Suspension PO SCH ×3 (09:43→21:08)
[2019-03-10] MEDS: Enoxaparin Sodium 40 MG/0.4 ML SYRINGE SC SCH ×2 (09:43→21:08)
--- NOTE | 2019-03-10 15:19 | MRI ---
MRI BRAIN WITH AND WITHOUT IV CONTRAST: HISTORY: TIA, altered mental status, short-term memory loss. FINDINGS: Correlation is made with the CT scan from 03/08/2019. No restricted diffusion is seen. There are mult iple foci of T2 prolongation in the periventricular white matter consistent with chronic small-vessel ischemic disease. The ventricular is appropriate and the basilar cisterns are patent. No evidence of acute infarct, acute hemorrhage, midline shift, mass, or abnormal extraaxial fluid collection is s een. No abnormal post contrast enhancement is noted. There are a few tiny foci of hypointensities o n the gradient echo sequences indicative of hemosiderin deposition likely from tiny remote hemorrhage s. There is mucosal disease in the paranasal sinuses. There is fluid in the mastoid air cells. IMPRESSION: No evidence of acute intracranial process or mass. POS: OFF
[2019-03-10] MEDS: metFORMIN 500 MG TAB PO SCH (15:56)
[2019-03-10] MEDS: Cyanocobalamin (Vitamin B-12) 1,000 MCG TAB PO SCH (21:08)
--- NOTE | 2019-03-11 05:53 | PDOC.FM ---
- Subjective Subjective: NAEO. Patient states he feels well this AM. has no complaints. Denies any chest pain, SOB, fever/chills, or N/V/D. - Objective MAR Reviewed: Yes Vital Signs & Weight: Vital Signs (12 hours) Temp Pulse BP Pulse Ox 03/10/19 19:30 98.6 F 63 143/64 H 93 L Weight Weight 144.1 kg I&O: 03/09/19 03/10/19 03/11/19 06:59 06:59 06:59 Intake Total 8310 857 3743 Balance 8312 228 1983 Result Diagrams: 03/11/19 07:15 03/11/19 07:15 Radiology: MRI from 03/10- Multiple foci that represent hemosiderin deposits consistent with small vessel ischemic changes. Phys Exam - Physical Examination Constitutional: NAD HEENT: moist MMs, sclera anicteric Neck: supple Respiratory: no wheezing, no rales, no rhonchi, clear to auscultation bilateral Cardiovascular: RRR, no significant murmur Musculoskeletal: edema present (nonpitting in B/L LEs) Neurological: non-focal, moves all 4 limbs Psychiatric: normal affect, A&O x 3 Skin: no rash Deviation from normal: warmth & erythema over left lower leg w/ no significant TTP Dx/Plan (1) Delirium Code(s): R41.0 - DISORIENTATION, UNSPECIFIED Status: Resolved (2) Dementia Code(s): F03.90 - UNSPECIFIED DEMENTIA WITHOUT BEHAVIORAL DISTURBANCE Status: Chronic (3) Left leg cellulitis Code(s): L03.116 - CELLULITIS OF LEFT LOWER LIMB Status: Acute (4) Dementia with psychosis Code(s): F03.91 - UNSPECIFIED DEMENTIA WITH BEHAVIORAL DISTURBANCE Status: Chronic (5) Diabetes type 2, controlled Code(s): E11.9 - TYPE 2 DIABETES MELLITUS WITHOUT COMPLICATIONS Status: Chronic (6) Hypertension Code(s): I10 - ESSENTIAL (PRIMARY) HYPERTENSION Status: Chronic - Plan Plan: 74 year old male with a h/o dementia with psychosis, DMII, CKD, and HTN who presents to ED after being "found down." Encephalopathy vs. delirium in setting of underlying dementia - Patient presented with a similar event in 11/2018 & no overt etiology was determined at that time. - CT brain negative for any acute events & MRI yesterday showed multiple punctate hypodensities read to be c/w hemosiderin deposits seen from small vessel ischemic changes. - Consulted neurology for opinion regarding dementia. Appreciate recs. MRI obtained yesterday showed findings described above. EEG also pending. - Acute mental status change could be explained by LLE cellulitis; however, infection not systemic as blood cultures negative at 48 hours. Will continue oral cephalexin but resume IV therapy if patient declines or there is evidence of potential for severe infection. Procal continues to downtrend. Most likely etiology is delirium in the setting of dementia; patient had recent life stressor with passing of his mother less than one week ago. - Patient has had very thorough workup in past including vitamin deficiencies, depression screening, syphilis screening, etc. - Patient not safe at home we do not believe he has the capacity at this time to make complex medical decisions. Has agreed with temporary placement for now. Clinically accepted to [facility] yesterday, pending insurance approval. LLE cellulitis - Erythema, warmth, with mild white count - Will continue oral cephalexin with dose adjusted for kidney function - Blood cultures negative to date @ 48 hours today - Given 4.5 g zosyn and 1 g vanc in ED x1 - Procalcitonin downtrending. - Will transition back to IV abx if patient clinically deteriorates or shows evidence of severe infection Deconditioning - Would benefit from [facility] placement vs. rehab - PT/OT on board HTN - Continue home medications - PRN for SBP >180 HLD - Continue home medications DM Type II - Continue home medications - Hyperglycemia protocol CKD stage IV 2/2 HTN and diabetic nephropathy - Follows with nephro - Avoid nephrotoxic agents and adjust medications accordingly - Appears at baseline Dispo: Neurology consulted. Appreciate recs. Pending insurance acceptance to [facility] for temporary placement. Addendum - Attending - Attending Attestation Date/Time: 03/11/19 1122 I personally evaluated the patient and discussed the management with Dr. Cardenas. I agree with the History, Examination, Assessment and Plan documented above with any addition or exceptions noted below. The patient is awake and alert but doesn't remember why he is in the hospital. He states he is feeling well. Waiting on placement.
[2019-03-11 07:50] LABS: #Eosinphils 0.2 thou/uL (0.0-0.7); #Lymphocytes 1.3 thou/uL (1.20-3.40); #Monocytes 0.4 thou/uL (0.11-0.59); #Neutrophils 3.7 thou/uL (1.40-6.50); %Basophils 0.3 % (0.0-1.0); %Eosinophils 3.6 % (0.0-10.0); %Lymphocytes 23.1 % (21.0-51.0); %Monocytes 7.6 % (0.0-10.0); %Neutrophils 65.4 % (42.0-75.0); Hemoglobin 12.5 g/dL (14.0-18.0); Mean Corpuscular HGB CONC 34.3 g/dL (32.0-36.0); Mean Corpuscular Hemoglobin 32.2 pg (27.0-31.0); Mean Corpuscular Volume 93.9 fL (78.0-98.0); Mean Platelet Volume 7.6 fL (7.4-10.4); Platelet Count 173 thou/uL (130-400); RBC Distribution Width 12.2 % (11.5-14.5); Red Blood Cell (RBC) Count 3.88 mill/uL (4.70-6.10); White Blood Cell (WBC) Count 5.7 thou/uL (4.8-10.8)
[2019-03-11 08:12] LABS: Anion Gap 10 mmol/L (10-20); BUN (Urea Nitrogen) 16 mg/dL (8.4-25.7); Calc. Creatinine Clearance 103 mL/min (70-130); Calcium 8.7 mg/dL (7.8-10.44); Carbon Dioxide 26 mmol/L (23-31); Chloride 108 mmol/L (98-107); Estimated GFR-MDRD 56; Glucose 109 mg/dL (83-110); Potassium 4.3 mmol/L (3.5-5.1); Sodium 140 mmol/L (136-145)
[2019-03-11] MEDS: Lisinopril 20 MG TAB PO SCH (08:17)
[2019-03-11] MEDS: Folic Acid 1 MG TAB PO SCH (08:17)
[2019-03-11] MEDS: Atorvastatin Calcium 40 MG TAB PO SCH (08:17)
[2019-03-11] MEDS: Donepezil HCl 5 MG TAB PO SCH (08:18)
[2019-03-11] MEDS: Amlodipine 5 MG TAB PO SCH (08:18)
[2019-03-11] MEDS: Cyanocobalamin (Vitamin B-12) 1,000 MCG TAB PO SCH ×2 (08:18→20:19)
[2019-03-11] MEDS: metFORMIN 500 MG TAB PO SCH ×2 (08:18→16:32)
[2019-03-11] MEDS: Enoxaparin Sodium 40 MG/0.4 ML SYRINGE SC SCH ×2 (08:19→20:20)
[2019-03-11] MEDS: Cephalexin 250 MG/5 ML Oral Suspension PO SCH ×3 (08:19→20:20)
[2019-03-11] MEDS: Furosemide 40 MG TAB PO SCH (08:19)
--- NOTE | 2019-03-12 06:48 | PDOC.FM ---
- Subjective Subjective: NAEO. Patient states he feels well this AM. Denies any shortness of breath, cough, or chest pain. Also denies any fever/chills or N/V/D. - Objective MAR Reviewed: Yes Vital Signs & Weight: Vital Signs (12 hours) Temp Pulse Resp BP Pulse Ox 03/12/19 05:02 98.5 F 56 L 15 117/69 93 L 03/12/19 00:00 98.1 F 63 16 145/74 H 93 L 03/11/19 20:15 98.3 F 63 16 145/82 H 95 03/11/19 20:00 95 Weight Weight 144.1 kg I&O: 03/10/19 03/11/19 03/12/19 06:59 06:59 06:59 Intake Total 830 1330 1210 Output Total 700 Balance 830 1330 510 Result Diagrams: 03/11/19 07:15 03/11/19 07:15 Phys Exam - Physical Examination Constitutional: NAD HEENT: moist MMs, sclera anicteric Neck: supple, full ROM Respiratory: no wheezing, no rales, no rhonchi, clear to auscultation bilateral Cardiovascular: RRR, no significant murmur Musculoskeletal: edema present Neurological: non-focal, moves all 4 limbs Psychiatric: normal affect, A&O x 3 Skin: normal turgor Deviation from normal: slightly worse erythema and warmth on bilateral lower legs with a separate -: erythematous streak with small bullae behind R knee Dx/Plan (1) Delirium Code(s): R41.0 - DISORIENTATION, UNSPECIFIED Status: Resolved (2) Dementia Code(s): F03.90 - UNSPECIFIED DEMENTIA WITHOUT BEHAVIORAL DISTURBANCE Status: Chronic (3) Left leg cellulitis Code(s): L03.116 - CELLULITIS OF LEFT LOWER LIMB Status: Acute (4) Dementia with psychosis Code(s): F03.91 - UNSPECIFIED DEMENTIA WITH BEHAVIORAL DISTURBANCE Status: Chronic (5) Diabetes type 2, controlled Code(s): E11.9 - TYPE 2 DIABETES MELLITUS WITHOUT COMPLICATIONS Status: Chronic (6) Hypertension Code(s): I10 - ESSENTIAL (PRIMARY) HYPERTENSION Status: Chronic - Plan Plan: 74 year old male with a h/o dementia with psychosis, DMII, CKD, and HTN who presents to ED after being "found down." Encephalopathy vs. delirium in setting of underlying dementia - Patient presented with a similar event in 11/2018 & no overt etiology was determined at that time. - CT brain negative for any acute events & MRI yesterday showed multiple punctate hypodensities read to be c/w hemosiderin deposits seen from small vessel ischemic changes. - Consulted neurology for opinion regarding dementia. Appreciate recs. MRI obtained yesterday showed findings described above. EEG done on 03/10. - Acute mental status change could be explained by LLE cellulitis; however, infection not systemic as blood cultures negative. Will continue oral cephalexin but resume IV therapy if patient declines or there is evidence of potential for severe infection. Procal continues to downtrend. Most likely etiology is delirium in the setting of dementia; patient had recent life stressor with passing of his mother less than one week ago. - Patient has had very thorough workup in past including vitamin deficiencies, depression screening, syphilis screening, etc. - Patient not safe at home we do not believe he has the capacity at this time to make complex medical decisions. Has agreed with temporary placement for now. Clinically accepted to [facility] yesterday, pending insurance approval. LLE cellulitis - Erythema, warmth, with mild white count on admission. WBC WNLs now but erythema & warmth appears slightly worse on exam today. No significant TTP - Will consult wound care today - Will continue oral cephalexin with dose adjusted for kidney function but changes likely 2/2 chronic venous stasis as patient has not other clinical signs of an infection and legs are chronically swollen - Blood cultures negative but will transition back to IV abx if patient clinically deteriorates or shows evidence of severe infection Deconditioning - Would benefit from [facility] placement vs. rehab - PT/OT on board HTN - Continue home medications - PRN for SBP >180 HLD - Continue home medications DM Type II - Continue home medications - Hyperglycemia protocol CKD stage IV 2/2 HTN and diabetic nephropathy - Follows with nephro - Avoid nephrotoxic agents and adjust medications accordingly - Appears at baseline Dispo: Neurology consulted. Appreciate recs. Pending insurance acceptance to [facility] for temporary placement. Addendum - Attending - Attending Attestation Date/Time: 03/12/19 [id number] I personally evaluated the patient and discussed the management with Dr. Cardenas. I agree with the History, Examination, Assessment and Plan documented above with any addition or exceptions noted below. Pt with bulla behind knee and possibly worsened erythema though he has had no fever, denies worsening pain, normal wbc. Will get wound care on board. Continue antibiotics and if erythema worsens, restart iv antibiotics. Otherwise , waiting on placement.
[2019-03-12] MEDS: Atorvastatin Calcium 40 MG TAB PO SCH (09:02)
[2019-03-12] MEDS: Furosemide 40 MG TAB PO SCH (09:02)
[2019-03-12] MEDS: Folic Acid 1 MG TAB PO SCH (09:02)
[2019-03-12] MEDS: Lisinopril 20 MG TAB PO SCH (09:02)
[2019-03-12] MEDS: Amlodipine 5 MG TAB PO SCH (09:02)
[2019-03-12] MEDS: metFORMIN 500 MG TAB PO SCH ×2 (09:03→16:52)
[2019-03-12] MEDS: Cyanocobalamin (Vitamin B-12) 1,000 MCG TAB PO SCH ×2 (09:03→19:59)
[2019-03-12] MEDS: Enoxaparin Sodium 40 MG/0.4 ML SYRINGE SC SCH ×2 (09:04→19:59)
[2019-03-12] MEDS: Donepezil HCl 5 MG TAB PO SCH (09:04)
[2019-03-12] MEDS: Cephalexin 250 MG/5 ML Oral Suspension PO SCH ×3 (09:11→19:59)
[2019-03-12] MEDS: HumaLOG 300 UNITS/3 ML VIAL SC PRN (12:17)
--- NOTE | 2019-03-13 06:40 | PDOC.FM ---
- Subjective Subjective: Mr. Callaway was sitting up in bed eating breakfast. Has no complaints. Denies pain. Awaiting placement. - Objective MAR Reviewed: Yes Vital Signs & Weight: Vital Signs (12 hours) Temp Pulse Resp BP Pulse Ox 03/13/19 04:00 98.7 F 61 15 137/72 93 L 03/13/19 00:00 98.5 F 70 18 128/65 92 L 03/12/19 20:15 99.1 F 66 16 101/60 94 L 03/12/19 20:00 98 Weight Weight 144.1 kg I&O: 03/11/19 03/12/19 03/13/19 06:59 06:59 06:59 Intake Total 1330 1210 Output Total 700 Balance 1330 510 Result Diagrams: 03/11/19 07:15 03/11/19 07:15 Phys Exam - Physical Examination Constitutional: NAD Respiratory: no wheezing, clear to auscultation bilateral Cardiovascular: RRR, no significant murmur Gastrointestinal: soft, non-tender, positive bowel sounds LLE slightly erythematous, chronic venous stasis changes, R toe unchanged Neurological: non-focal Skin: normal turgor Dx/Plan (1) Dementia with psychosis Code(s): F03.91 - UNSPECIFIED DEMENTIA WITH BEHAVIORAL DISTURBANCE Status: Chronic (2) Left leg cellulitis Code(s): L03.116 - CELLULITIS OF LEFT LOWER LIMB Status: Acute (3) Dementia Code(s): F03.90 - UNSPECIFIED DEMENTIA WITHOUT BEHAVIORAL DISTURBANCE Status: Chronic (4) CKD (chronic kidney disease) Code(s): N18.9 - CHRONIC KIDNEY DISEASE, UNSPECIFIED Status: Chronic (5) Diabetes type 2, controlled Code(s): E11.9 - TYPE 2 DIABETES MELLITUS WITHOUT COMPLICATIONS Status: Chronic (6) Hypertension Code(s): I10 - ESSENTIAL (PRIMARY) HYPERTENSION Status: Chronic (7) Acute encephalopathy Code(s): G93.40 - ENCEPHALOPATHY, UNSPECIFIED Status: Resolved - Plan Plan: 74 year old male with a h/o dementia with psychosis, DMII, CKD, and HTN who presents to ED after being "found down." Encephalopathy vs. delirium in setting of underlying dementia - Patient presented with a similar event in 11/2018 & no overt etiology was determined at that time. - CT brain negative. MRI showed multiple punctate hypodensities read to be c/w hemosiderin deposits seen from small vessel ischemic changes. - Neurology consulted. EEG negative. - Most likely etiology is delirium in the setting of dementia; patient had recent life stressor with passing of his mother less than one week ago. - Patient has had very thorough workup in past including vitamin deficiencies, depression screening, syphilis screening, etc. - Clinically accepted to [facility] yesterday, pending insurance approval. LLE cellulitis - Erythema, warmth, with mild white count on admission. WBC WNLs now. No significant TTP - consult wound care - Will continue oral cephalexin with dose adjusted for kidney function but changes likely 2/2 chronic venous stasis as patient has not other clinical signs of an infection and legs are chronically swollen Deconditioning - PT/OT on board HTN - Continue home medications - PRN for SBP >180 HLD - Continue home medications DM Type II - Continue home medications - Hyperglycemia protocol CKD stage IV 2/2 HTN and diabetic nephropathy - Follows with nephro - Avoid nephrotoxic agents and adjust medications accordingly - Appears at baseline Dispo: Neurology consulted. Appreciate recs. Pending insurance acceptance to [facility] for temporary placement. Addendum - Attending - Attending Attestation Date/Time: 03/13/19 1122 I personally evaluated the patient and discussed the management with Dr. Hester. I agree with the History, Examination, Assessment and Plan documented above with any addition or exceptions noted below. Patient denies complaints this morning. LE continues to look stable, continue wound care and PO abx. Neuro has evaluated and has recommended continued workup outpatient for his memory issues. MRI did not show acute change. Awaiting short term placement and insurance authorization. Continue therapy while here but should be medically stable for discharge once accepted.
[2019-03-13] MEDS: Cephalexin 250 MG/5 ML Oral Suspension PO SCH ×3 (08:20→20:20)
[2019-03-13] MEDS: metFORMIN 500 MG TAB PO SCH ×2 (08:20→17:24)
[2019-03-13] MEDS: Lisinopril 20 MG TAB PO SCH (08:21)
[2019-03-13] MEDS: Furosemide 40 MG TAB PO SCH (08:28)
[2019-03-13] MEDS: Amlodipine 5 MG TAB PO SCH (08:28)
[2019-03-13] MEDS: Atorvastatin Calcium 40 MG TAB PO SCH (08:29)
[2019-03-13] MEDS: Cyanocobalamin (Vitamin B-12) 1,000 MCG TAB PO SCH ×2 (08:29→20:19)
[2019-03-13] MEDS: Donepezil HCl 5 MG TAB PO SCH (08:29)
[2019-03-13] MEDS: Folic Acid 1 MG TAB PO SCH (08:30)
[2019-03-13] MEDS: Enoxaparin Sodium 40 MG/0.4 ML SYRINGE SC SCH ×2 (08:31→20:19)
--- NOTE | 2019-03-13 08:43 | EEG ---
Referring Physician: Yani CELAYA EEG # [id number] TEST TYPE: ROUTINE PORTABLE INPATIENT REPORT: AN EEG USING THE INTERNATIONAL TEN-TWENTY SYSTEM OF ELECTRODE PLACEMENT WAS PERFORMED. The waking background is a low amplitude 8 hertz alpha frequency. The patient became drowsy, but no sleep was seen. Photic stimulation was unremarkable. No epileptiform features were seen. IMPRESSION: THIS IS A NORMAL AWAKE EEG. Upper Trimmer: SULEMA Furniture Stainer: [email or web address] [email or web address]
--- NOTE | 2019-03-14 07:15 | PDOC.FM ---
- Subjective Subjective: Mr. Callaway was resting comfortably in bed. Has no concerns or complaints. - Objective MAR Reviewed: Yes Vital Signs & Weight: Vital Signs (12 hours) Temp Pulse Resp BP Pulse Ox 03/14/19 04:47 98.4 F 55 L 15 149/66 H 93 L 03/14/19 00:41 98.5 F 70 18 147/72 H 92 L 03/13/19 20:05 98.3 F 62 15 110/51 L 94 L 03/13/19 20:00 94 L Weight Admit Weight 144.1 kg Weight 144.1 kg I&O: 03/13/19 03/14/19 03/15/19 06:59 06:59 06:59 Intake Total 1710 Output Total 1010 Balance 700 Result Diagrams: 03/11/19 07:15 03/11/19 07:15 Phys Exam - Physical Examination Constitutional: NAD Respiratory: no wheezing, no rhonchi, clear to auscultation bilateral Cardiovascular: RRR, no significant murmur Gastrointestinal: soft, non-tender, positive bowel sounds Neurological: non-focal Psychiatric: normal affect Skin: no rash Deviation from normal: BLE venous stasis, unchanged Dx/Plan (1) Dementia with psychosis Code(s): F03.91 - UNSPECIFIED DEMENTIA WITH BEHAVIORAL DISTURBANCE Status: Chronic (2) Left leg cellulitis Code(s): L03.116 - CELLULITIS OF LEFT LOWER LIMB Status: Acute (3) Dementia Code(s): F03.90 - UNSPECIFIED DEMENTIA WITHOUT BEHAVIORAL DISTURBANCE Status: Chronic (4) CKD (chronic kidney disease) Code(s): N18.9 - CHRONIC KIDNEY DISEASE, UNSPECIFIED Status: Chronic (5) Diabetes type 2, controlled Code(s): E11.9 - TYPE 2 DIABETES MELLITUS WITHOUT COMPLICATIONS Status: Chronic (6) Hypertension Code(s): I10 - ESSENTIAL (PRIMARY) HYPERTENSION Status: Chronic - Plan Plan: 74 year old male with a h/o dementia with psychosis, DMII, CKD, and HTN who presents to ED after being "found down." Delirium in setting of underlying dementia, resolved - Patient presented with a similar event in 11/2018 & no overt etiology was determined at that time. - CT brain negative. MRI showed multiple punctate hypodensities read to be c/w hemosiderin deposits seen from small vessel ischemic changes. - Neurology consulted. EEG negative. - patient had recent life stressor with passing of his mother less than one week ago. - Patient has had very thorough workup in past including vitamin deficiencies, depression screening, syphilis screening, etc. LLE cellulitis - Erythema, warmth, with mild white count on admission. WBC WNLs now. No significant TTP - consult wound care - Today has completed 7 day course Deconditioning - PT/OT on board HTN - Continue home medications - PRN for SBP >180 HLD - Continue home medications DM Type II - Continue home medications - Hyperglycemia protocol CKD stage IV 2/2 HTN and diabetic nephropathy - Follows with nephro - Avoid nephrotoxic agents and adjust medications accordingly - Appears at baseline Dispo: Plan for discharge to [facility]
[2019-03-14] MEDS: Atorvastatin Calcium 40 MG TAB PO SCH (09:04)
[2019-03-14] MEDS: metFORMIN 500 MG TAB PO SCH (09:04)
[2019-03-14] MEDS: Lisinopril 20 MG TAB PO SCH (09:05)
[2019-03-14] MEDS: Amlodipine 5 MG TAB PO SCH (09:05)
[2019-03-14] MEDS: Cyanocobalamin (Vitamin B-12) 1,000 MCG TAB PO SCH (09:05)
[2019-03-14] MEDS: Donepezil HCl 5 MG TAB PO SCH (09:05)
[2019-03-14] MEDS: Furosemide 40 MG TAB PO SCH (09:05)
[2019-03-14] MEDS: Folic Acid 1 MG TAB PO SCH (09:06)
[2019-03-14] MEDS: Enoxaparin Sodium 40 MG/0.4 ML SYRINGE SC SCH (09:06)
[2019-03-14] MEDS: Cephalexin 250 MG/5 ML Oral Suspension PO SCH ×2 (13:34→13:36)
[2019-03-14 14:35] VITALS: BP 134/70; TEMP 97.8
== END 2019-03-14 14:31 | DRG 884 ==
LOC: ERS 11:01 → OBSVTOIN 13:56 → ERHOLD 13:56 → T4-B 16:52
PROVIDERS: ADMIT Family Medicine; ATTEND Family Medicine
PROC: 4A00X4Z Measurement of Central Nervous Electrical Activity, External Approach (ICD-10-PCS; principal; 2019-03-08)
DX: F03.90 Unspecified dementia, unspecified severity, without behavioral disturbance, psychotic disturbance, mood disturbance, and anxiety (principal); G93.40 Encephalopathy, unspecified; I69.354 Hemiplegia and hemiparesis following cerebral infarction affecting left non-dominant side; I13.0 Hypertensive heart and chronic kidney disease with heart failure and stage 1 through stage 4 chronic kidney disease, or unspecified chronic kidney disease; N18.4 Chronic kidney disease, stage 4 (severe); I50.32 Chronic diastolic (congestive) heart failure; L03.116 Cellulitis of left lower limb; F03.91 Unspecified dementia, unspecified severity, with behavioral disturbance; E78.5 Hyperlipidemia, unspecified; E11.22 Type 2 diabetes mellitus with diabetic chronic kidney disease
CPT/HCPCS: 36415; 36416; 70450; 70552; 70553; 71045; 80048; 80053; 81001; 82140; 82533; 82550; 82607; 84145; 84436; 85025; 87040; 87086; 93005; 94760; 95816; 95819; 96365; 96366; J1650; J2543; J3370

== ENCOUNTER 2019-10-12 16:37 | Emergency (ER) | payer MEDICARE ==
[2019-10-12 17:58] LABS: #Eosinphils 0.1 thou/uL (0.0-0.7); #Lymphocytes 1.4 thou/uL (1.20-3.40); #Monocytes 0.8 thou/uL (0.11-0.59); #Neutrophils 7.1 thou/uL (1.40-6.50); %Basophils 0.5 % (0.0-1.0); %Eosinophils 1.4 % (0.0-10.0); %Lymphocytes 14.5 % (21.0-51.0); %Monocytes 8.2 % (0.0-10.0); %Neutrophils 75.5 % (42.0-75.0); Hemoglobin 15.1 g/dL (14.0-18.0); Mean Corpuscular Hemoglobin 30.9 pg (27.0-31.0); Mean Corpuscular Volume 93.7 fL (78.0-98.0); Mean Platelet Volume 7.8 fL (7.4-10.4); Platelet Count 179 thou/uL (130-400); RBC Distribution Width 12.2 % (11.5-14.5); Red Blood Cell (RBC) Count 4.87 mill/uL (4.70-6.10); White Blood Cell (WBC) Count 9.3 thou/uL (4.8-10.8)
--- NOTE | 2019-10-12 18:18 | RAD ---
LEFT FOOT THREE VIEWS: 10/12/19 HISTORY: Wound to the left great toe with edema. Patient is a diabetic. FINDINGS/IMPRESSION: No fracture, dislocation, bony destruction or periosteal reaction is seen. Plantar calcaneal spur is present. POS: CHRISTAL
[2019-10-12 18:24] LABS: ALT (SGPT) 8 U/L (8-55); AST (SGOT) 10 U/L (5-34); Albumin 3.3 g/dL (3.4-4.8); Alkaline Phosphatase 64 U/L (40-110); Anion Gap 14 mmol/L (10-20); BUN (Urea Nitrogen) 25 mg/dL (8.4-25.7); Bilirubin, Total 0.5 mg/dL (0.2-1.2); Calc. Creatinine Clearance 0 mL/min (70-130); Carbon Dioxide 22 mmol/L (23-31); Chloride 111 mmol/L (98-107); Estimated GFR-MDRD 36; Glucose 142 mg/dL (83-110); Potassium 4.4 mmol/L (3.5-5.1); Protein, Total 7.3 g/dL (5.8-8.1); Sodium 143 mmol/L (136-145)
== END 2019-10-12 20:53 | disposition home or self-care (01) ==
LOC: ERS 16:37
DX: E11.69 Type 2 diabetes mellitus with other specified complication (principal); I11.0 Hypertensive heart disease with heart failure; I50.9 Heart failure, unspecified; E78.5 Hyperlipidemia, unspecified; E78.00 Pure hypercholesterolemia, unspecified; Z79.899 Other long term (current) drug therapy; Z79.84 Long term (current) use of oral hypoglycemic drugs
CPT/HCPCS: 36415; 80053; 83605; 85025; 87040

== ENCOUNTER 2020-05-25 10:43 | Observation (INO) | payer MEDICARE ==
[2020-05-25] MEDS ORDERED: Morphine 4 MG/ML VIAL ONE (10:59)
[2020-05-25] MEDS ORDERED: Ondansetron PF 4 MG/2 ML Vial ONE (10:59)
[2020-05-25 11:19] LABS: #Eosinphils 0.1 thou/uL (0.0-0.7); #Lymphocytes 1.6 thou/uL (1.20-3.40); #Monocytes 0.6 thou/uL (0.11-0.59); #Neutrophils 4.8 thou/uL (1.40-6.50); %Basophils 0.6 % (0.0-1.0); %Lymphocytes 22.6 % (21.0-51.0); %Monocytes 8.3 % (0.0-10.0); %Neutrophils 66.7 % (42.0-75.0); Hemoglobin 15.4 g/dL (14.0-18.0); Mean Corpuscular HGB CONC 33.6 g/dL (32.0-36.0); Mean Corpuscular Hemoglobin 30.7 pg (27.0-31.0); Mean Corpuscular Volume 91.4 fL (78.0-98.0); Mean Platelet Volume 7.8 fL (7.4-10.4); Platelet Count 189 thou/uL (130-400); RBC Distribution Width 12.1 % (11.5-14.5); Red Blood Cell (RBC) Count 5.02 mill/uL (4.70-6.10); White Blood Cell (WBC) Count 7.1 thou/uL (4.8-10.8)
[2020-05-25] MEDS ORDERED: Aspirin Chewable 81 MG TAB ONE (11:25)
--- NOTE | 2020-05-25 11:26 | RAD ---
EXAM: Single view of the chest HISTORY: Low back pain and foul-smelling urine COMPARISON: 03/08/2019 FINDINGS: Single view of the chest shows an enlarged but stable cardiomediastinal silhouette. There i s no evidence of consolidation, mass, or pleural effusion. The bones are unremarkable IMPRESSION: Stable cardiomegaly
[2020-05-25 11:47] LABS: ALT (SGPT) 8 U/L (8-55); AST (SGOT) 11 U/L (5-34); Albumin 3.1 g/dL (3.4-4.8); Alkaline Phosphatase 65 U/L (40-110); Anion Gap 13 mmol/L (10-20); BUN (Urea Nitrogen) 16 mg/dL (8.4-25.7); Bilirubin, Total 0.7 mg/dL (0.2-1.2); Calc. Creatinine Clearance 0 mL/min (70-130); Carbon Dioxide 25 mmol/L (23-31); Chloride 106 mmol/L (98-107); Estimated GFR-MDRD 49; Glucose 156 mg/dL (83-110); Lipase 24 U/L (8-78); Potassium 4.4 mmol/L (3.5-5.1); Protein, Total 7.1 g/dL (5.8-8.1); Sodium 140 mmol/L (136-145)
--- NOTE | 2020-05-25 12:17 | ULT ---
EXAM: Bilateral lower extremity venous ultrasound HISTORY: Bilateral lower extremity pain and edema COMPARISON: None TECHNIQUE: Multiplanar grayscale and color Doppler images were obtained in a bilateral lower extremit y venous ultrasound. Spectral analysis of the Doppler waveforms were performed. FINDINGS: The bilateral common femoral vein, profunda femoral veins, superficial femoral veins, and p opliteal veins are normal in appearance without visible thrombus. These vessels demonstrate normal compression, flow, and augmentation. The bilateral posterior tibial veins and greater saphenous veins are patent without evidence of throm bus. IMPRESSION: No evidence of DVT.
--- NOTE | 2020-05-25 12:59 | CT ---
CT Abdomen Pelvis W Con: 05/25/2020 11:00 AM CLINICAL INFORMATION: Right paraspinal and mid low back pain COMPARISON: None. TECHNIQUE: Multiple contiguous axial images were obtained and a CT of the abdomen and pelvis with IV contrast. C oronal and sagittal reformats were performed. FINDINGS: Lower Chest: within normal limits. Abdomen: Liver: within normal limits. Bile Ducts: Normal caliber. Gallbladder: Removed Pancreas: within normal limits. Spleen: within normal limits. Adrenals: within normal limits. Kidneys: 2.7 cm right renal cyst. There is cortical thinning of both kidneys. Pelvis: Reproductive Organs: No pelvic masses. Ureters: within normal limits. Bladder: within normal limits. Peritoneum: No ascites or free air, no fluid collection. Bowel: Normal caliber. Postsurgical changes in the stomach. Scattered diverticula in the colon. Mesentery and Retroperitoneum: No enlarged mesenteric or retroperitoneal lymph nodes. Vessels: Atherosclerotic calcifications. Abdominal Wall: within normal limits. Bones: Degenerative changes in the spine. IMPRESSION: 1. No evidence of acute intraabdominal or pelvic abnormality. 2. Right renal cyst
[2020-05-25 13:07] LABS: Bilirubin Negative (Negative); Blood, Urine Negative (Negative); Clarity Clear (Clear); Glucose, Urine (Dipstick) Normal (Negative); Ketone, Urine Negative (Negative); Leukocyte Negative Leu/uL (Negative); Nitrite Negative (Negative); Protein, Urine (Dipstick) Negative (Neg-Trace); Specific Gravity, Urine 1.019 (1.002-1.036); Urobilinogen Normal mg/dL (Less than 2)
[2020-05-25] MEDS ORDERED: Iopamidol-370 76% 500 ML 1 ML ONE (13:21)
[2020-05-25] MEDS ORDERED: Ondansetron PF 4 MG/2 ML Vial IVP PRN (13:30)
[2020-05-25] MEDS ORDERED: Ondansetron ODT 4 MG TAB PO PRN (13:30)
[2020-05-25] MEDS ORDERED: Calcium Carbonate 500 MG ChewTAB PO PRN (13:30)
[2020-05-25] MEDS ORDERED: Dextrose 50% Abboject 50 ML SYRINGE SLOW IVP PRN (13:56)
[2020-05-25] MEDS ORDERED: Dextrose 5% in Water 1,000 ML IV PRN (13:56)
[2020-05-25 14:32] LABS: Magnesium 1.7 mg/dL (1.6-2.6); Phosphorus 3.7 mg/dL (2.3-4.7)
[2020-05-25 14:36] LABS: Troponin I 0.025 ng/mL (< 0.028)
--- NOTE | 2020-05-25 16:57 | PDOC.FPRHP ---
- History of Present Illness Chief Complaint: lower back pain History of Present Illness: 69 yo M with a history of DMII, HLD, HTN, and dementia presented to ED complaining of lower back pain. Patient denied trauma. A CT lumbar spine revealed no evidence for an acute fracture and the pain was controlled with morphine. At time of interview patient denied back pain. While being monitored patient was noted to be bradycardic. Per nursing, patient's HR would intermittently drop to the 40s. ED physician reports being told it had dropped to the 20s at one point. Patient denies any syncope, weakness, SOB. Caregiver reports they check patient's pulse daily and have never seen it bradycardic. Caregiver also reports cloudy and dark urine for the past few days. Patient also complains of significant lower extremity swelling which is not uncommon for him. ED Course: Patient was given aspirin, his troponin was negative and CXR was normal. Venogram revealed no DVT. - Allergies/Adverse Reactions Allergies Allergy/AdvReac Type Severity Reaction Status Date / Time No Known Allergies Allergy Verified 05/25/20 15:25 - Home Medications Medication Instructions Recorded Confirmed Type Amlodipine [Norvasc] 5 mg PO DAILY #30 tab 03/11/19 05/25/20 Rx Atorvastatin Calcium 80 mg PO DAILY #30 tablet 03/11/19 05/25/20 Rx Donepezil HCl [Aricept] 5 mg PO DAILY #30 tab 03/11/19 05/25/20 Rx Folic Acid [Folvite] 1 mg PO DAILY #30 tab 03/11/19 05/25/20 Rx Furosemide 40 mg PO DAILY #30 tablet 03/11/19 05/25/20 Rx Lisinopril 40 mg PO DAILY #30 tablet 03/11/19 05/25/20 Rx metFORMIN HCl 500 mg PO BID-WM #60 tablet 03/11/19 05/25/20 Rx - History PMHx: DMII, HLD, HTN, dementia PSHx: cholecystectomy, bilateral knee replacements, gastric sleeve, cataracts FHx: Patient cannot recall. Social: Lives alone. Has caretakers come daily, is alone at night. Patient denies tobacco, alcohol, or drug abuse. - Review of Systems General: denies: fever/chills, weight/appetite/sleep changes Eyes: denies: vision changes ENT: denies: nasal congestion, rhinorrhea Respiratory: denies: cough, congestion, shortness of breath Cardiovascular: reports: edema. denies: chest pain, palpitation Gastrointestinal: reports: diarrhea, constipation. denies: nausea, vomiting, abdominal pain Genitourinary: reports: other. denies: incontinence (reports dark urine) Skin: denies: itching Neurological: denies: syncope - Vital signs BP: 172/92 HR: 71 RR: 20 Tmax: 98.4 Pox: 97% on RA Wt: 150kg - Physical Exam Constitutional: NAD, awake, alert and oriented HEENT: normocephalic and atraumatic, PERRLA, EOMI, no scleral icterus, grossly normal hearing Neck: FROM Heart: RRR, normal S1/S2, no murmurs/rubs/gallops, pulses present -Heart: bilaterally 2+ LE edema Lungs: CTAB, no respiratory distress, good air movement, no rales/rhonchi, no wheezing, no retractions Abdomen: soft, non-tender, bowel sounds present Musculoskeletal: normal structure, normal tone, ROM grossly normal Neurological: no focal deficit FMR H&P: Results - Labs Result Diagrams: 05/25/20 11:07 05/25/20 11:07 Lab results: WBC 7.1 thou/uL (4.8-10.8) 05/25/20 11:07 Hgb 15.4 g/dL (14.0-18.0) 05/25/20 11:07 Hct 45.9 % (42.0-52.0) 05/25/20 11:07 MCV 91.4 fL (78.0-98.0) 05/25/20 11:07 Plt Count 189 thou/uL (130-400) 05/25/20 11:07 Neutrophils % 66.7 % (42.0-75.0) 05/25/20 11:07 Sodium 140 mmol/L (136-145) 05/25/20 11:07 Potassium 4.4 mmol/L (3.5-5.1) 05/25/20 11:07 Chloride 106 mmol/L (98-107) 05/25/20 11:07 Carbon Dioxide 25 mmol/L (23-31) 05/25/20 11:07 BUN 16 mg/dL (8.4-25.7) 05/25/20 11:07 Creatinine 1.40 mg/dL (0.7-1.3) H 05/25/20 11:07 Glucose 156 mg/dL (83-110) H 05/25/20 11:07 Lactic Acid 1.0 mmol/L (0.5-2.2) 05/25/20 11:31 Calcium 9.0 mg/dL (7.8-10.44) 05/25/20 11:07 Total Bilirubin 0.7 mg/dL (0.2-1.2) 05/25/20 11:07 AST 11 U/L (5-34) 05/25/20 11:07 ALT 8 U/L (8-55) 05/25/20 11:07 Alkaline Phosphatase 65 U/L (40-110) 05/25/20 11:07 B-Natriuretic Peptide 76.5 pg/mL (0-100) 05/25/20 11:31 Serum Total Protein 7.1 g/dL (5.8-8.1) 05/25/20 11:07 Albumin 3.1 g/dL (3.4-4.8) L 05/25/20 11:07 Lipase 24 U/L (8-78) 05/25/20 11:07 Urine Ketones Negative mg/dL (Negative) 05/25/20 12:53 Urine Blood Negative (Negative) 05/25/20 12:53 Urine Nitrite Negative (Negative) 05/25/20 12:53 Ur Leukocyte Esterase Negative Gin/uL (Negative) 05/25/20 12:53 - EKG Interpretation EKG: ED physician read: 2nd degree type 2 block - Radiology Interpretation CT scan - abdomen Status: report reviewed by me (no acute process) Other Status: report reviewed by me (venogram: no DVT) Chest x-ray Status: report reviewed by me (stable cardiomegaly) FMR H&P: A/P - Problem List (1) Bradycardia Current Visit: Yes Status: Acute Code(s): R00.1 - BRADYCARDIA, UNSPECIFIED (2) HLD (hyperlipidemia) Current Visit: Yes Status: Acute Code(s): E78.5 - HYPERLIPIDEMIA, UNSPECIFIED (3) Dementia Current Visit: No Status: Chronic Code(s): F03.90 - UNSPECIFIED DEMENTIA WITHOUT BEHAVIORAL DISTURBANCE (4) Diabetes type 2, controlled Current Visit: No Status: Chronic Code(s): E11.9 - TYPE 2 DIABETES MELLITUS WITHOUT COMPLICATIONS (5) Hypertension Current Visit: No Status: Chronic Code(s): I10 - ESSENTIAL (PRIMARY) HYPERTENSION - Plan 69 yo M with a history of DMII, HLD, HTN, and dementia presented to ED complaining of lower back pain and was incidentally found to have intermittent bradycardia. Bradycardia -Patient denies any symptoms. It is intermittent and was not present at time of Resident's interview but the patient's HR was in the 40s when Dr. Browning saw her. -Card recs: Requires record of the bradycardia for intervention. Recommended overnight monitoring. -TSH 0.38, Mg 1.7, Phos 3.7 -ECHO pending Lumbar back pain -Relieved with morphine in ED -CT revealed no evidence of acute fracture DMII -Continue home metformin -SSI prn HLD -Continue home atorvastatin HTN -Continue home amlodopine and lisinopril Dementia -Continue home donepezil PCP: Yanci GAN Code: FULL Diet: CC 2000 VTE PPx: Lovenox Dispo: Observation, tele, stable. LOS<48hrs. Discharge pending cardiology request. FMR H&P: Upper Level - Plan Date/Time: 05/25/20 1652 75yo male with pmh of dementia, DMII, CKD, HTN presented to the ED from home for lower back pain that started last night. So intense he has been unable to ambulate. Caregiver reported his urine looked cloudy this AM. Patient reports left leg pain. He denies any fever, chills, dysuria, chest pain, shortness of breath, dizziness. In the ED he was given ASA, Morphine and Zofran. PE: General: NAD CV: HR 70's. Irregular rhythm, no murmur. 2+ radial pulse Pulm: CTA b/l Abdomen: soft, nontender Extremities: Bilateral edema A/P: Symptomatic Bradycardia - Trop neg. EKG with artifact. No signs of acute ischemia. HR 73. No documented bradycardia in ED. - Ordered TSH, Mg, Phos. No Echo on record or in clinic charts. Will obtain inpt. - Discussed case with Cardiology, Dr Melendez. Will monitor overnight and possible pacemaker if any events captured overnight. - Admit to tele Back Pain - Lipase neg. CT abd/pelvis pending. Trop neg, continue to trend. - UA no signs of infection. Appears to be MSK in nature and resolved with Morphine. CT abd/pelvis normal with exception CKD -At baseline LE pain -US: No DVT INani, have evaluated this patient and agree with findings/plan as outlined by [facility] internship resident. Pertinent changes/additions are listed here.
[2020-05-25 17:48] LABS: Troponin I 0.031 ng/mL (< 0.028)
[2020-05-25] MEDS: metFORMIN 500 MG TAB PO SCH (18:20)
--- NOTE | 2020-05-25 19:54 | CON ---
DATE OF CONSULTATION: HISTORY OF PRESENT ILLNESS: Manuel Callaway is a 75-year-old white male who I have followed intermittently over the last 10 years, although he has not been seen in the office since 04/2017. He has lower extremity venous insufficiency and has been using compression stockings. Also, he has had documented bradycardia in the past. In 04/2010, an EKG showed a heart rate of 52 per minute. Another EKG when he was last seen in 04/2017 revealed a rate of 54 per minute. He awoke this morning having back pain, so bad that he could not get out of bed. EMS was called. He was brought to the emergency room, was given morphine with relief of his pain. However, it was noted that he had bradycardia. I am told that he had a heart rate on the monitor was as low as 29 per minute, although in general, his heart rate was in the 40s. Mr. Callaway denies ever having any lightheadedness , dizziness, or syncope. He denies any chest discomfort or shortness of breath. None of the bradycardic episodes were ever documented. PAST MEDICAL HISTORY: 1. Obstructive sleep apnea. 2. Hypertension. 3. Diabetes. 4. Hypercholesterolemia. 5. Morbid obesity. 6. Renal insufficiency. 7. Venous insufficiency. 8. Dementia. PAST SURGICAL HISTORY: Bilateral total knee replacement. MEDICATIONS: 1. Amlodipine 5 daily. 2. Furosemide 40 mg q.a.m. 3. Folic acid 1 mg daily. 4. Aricept 5 mg daily. 5. Atorvastatin 80 daily. 6. Metformin 500 mg b.i.d. 7. Lisinopril 40 daily. SOCIAL HISTORY: He smoked, but stopped 45 or 50 years ago. He does not drink. FAMILY HISTORY: Negative for coronary artery disease. REVIEW OF SYSTEMS: Ten-point review of systems is otherwise unremarkable. PHYSICAL EXAMINATION: VITAL SIGNS: Blood pressure 192/94 and pulse of 90. HEENT: PERRL. NECK: Supple. CHEST: Clear. CARDIAC: S1 and S2 are normal without any S3, S4, or murmurs. Carotid upstrokes normal without bruits. ABDOMEN: Normal bowel sounds without tenderness or organomegaly. The abdomen is obese. EXTREMITIES: No significant edema. There is no clubbing or cyanosis. NEUROLOGIC: Grossly intact. SKIN: Warm and dry. LABORATORY DATA: EKG revealed normal sinus rhythm with atrial bigeminy, poor R- wave progression. Echocardiogram in the office from 02/2018 revealed ejection fraction of 60% to 65% with evidence for diastolic dysfunction. CBC is unremarkable. Sodium 140, potassium 4.4, chloride 106, carbon dioxide 25, BUN 16, and creatinine 1.40. Cardiac enzymes were unremarkable. IMPRESSION: 1. Asymptomatic bradycardia. His bradycardia was never documented in the emergency room. He denies any symptoms of lightheadedness, dizziness, or syncope. 2. Hypertension. 3. Hypercholesterolemia. 4. Diabetes. 5. Venous insufficiency. 6. Renal insufficiency. 7. Dementia. PLAN: Mr. Callaway has asymptomatic bradycardia. His bradycardia has been documented for least 10 years. He is on no medications that would suppress his heart rate. He will be monitored overnight, and if he does not have any significant symptomatic bradycardia, I feel that he may be discharged and we complete his workup and evaluation as an outpatient. Job ID: [id number] MTDD
--- NOTE | 2020-05-25 20:45 | HP ---
Please see history and physical done by Dr. Kern, for which I agree. The patient was seen, evaluated, discussed, and examined with the residents. HISTORY OF PRESENT ILLNESS: Gentleman actually came to the emergency room because he was having pretty severe back pain and some question about urination issues, such as a foul smelling urine. No dysuria, etc. He does have dementia, so he is not the best historian. But was found to have bradycardia, periodically his pulse would drop 40s, if not maybe even lower. Entirely asymptomatic. When I evaluated him, his pulse is right at 40 and he had no symptoms. Has not described any kind of syncope, near-syncope, palpitations, weakness, etc., lately. It sounds like he has chronic edema, but recently he has actually been doing better. One EKG showed the possibility of a Mobitz type 2 block. All those are really difficult to ascertain as it almost seems to be bigeminy or something similar between two beats would be 100 beats per minute and then the other beats would be 50 beats per minute. Most of the blood workup, etc., has been normal. PAST MEDICAL HISTORY: All per the residents history and physical. SOCIAL HISTORY: All per the residents history and physical. MEDICATIONS: All per the residents history and physical. FAMILY HISTORY: All per the residents history and physical. REVIEW OF SYSTEMS: All per the residents history and physical. OBJECTIVE: VITAL SIGNS: Blood pressure initially was extremely high, even diastolic of 105 was noted. No apparent distress. No respiratory distress currently. Pulse is 40 when I checked him. EYES and ENT: Conjunctivae not pale. Sclerae anicteric. Moist mucosa. CHEST: Clear. HEART: Regular rate and rhythm to occasionally going bradycardic, but did seem regular when he was bradycardic, not currently on the monitors as they are moving him. ABDOMEN: Benign. EXTREMITIES: Looks like chronic edema. Onychomycosis. No major skin breakdown that I could see. LABORATORY DATA: Labs, etc., reviewed. ASSESSMENT: 1. Relatively asymptomatic bradycardia likely sick sinus syndrome. 2. Back pain sounds musculoskeletal. 3. Numerous other medical problems including dementia, hyperlipidemia, and hypertension. PLAN: Obviously, we will admit him. Keep him on the monitor, observe him overnight. Cardiology has already been spoken to. May need to get EPS doctors involved as he may need a pacemaker. Job ID: [id number]
[2020-05-26 04:14] LABS: #Eosinphils 0.1 thou/uL (0.0-0.7); #Lymphocytes 1.6 thou/uL (1.20-3.40); #Monocytes 0.7 thou/uL (0.11-0.59); #Neutrophils 4.3 thou/uL (1.40-6.50); %Basophils 0.4 % (0.0-1.0); %Eosinophils 2.1 % (0.0-10.0); %Lymphocytes 23.7 % (21.0-51.0); %Monocytes 9.8 % (0.0-10.0); Mean Corpuscular HGB CONC 33.1 g/dL (32.0-36.0); Mean Corpuscular Hemoglobin 30.7 pg (27.0-31.0); Mean Corpuscular Volume 92.7 fL (78.0-98.0); Mean Platelet Volume 7.7 fL (7.4-10.4); Platelet Count 179 thou/uL (130-400); RBC Distribution Width 11.9 % (11.5-14.5); Red Blood Cell (RBC) Count 4.57 mill/uL (4.70-6.10); White Blood Cell (WBC) Count 6.7 thou/uL (4.8-10.8)
[2020-05-26 04:32] LABS: Anion Gap 10 mmol/L (10-20); BUN (Urea Nitrogen) 15 mg/dL (8.4-25.7); Calc. Creatinine Clearance 98 mL/min (70-130); Calcium 8.7 mg/dL (7.8-10.44); Carbon Dioxide 30 mmol/L (23-31); Chloride 106 mmol/L (98-107); Estimated GFR-MDRD 51; Glucose 130 mg/dL (83-110); Potassium 4.1 mmol/L (3.5-5.1); Sodium 142 mmol/L (136-145)
--- NOTE | 2020-05-26 06:03 | PDOC.FM ---
- Subjective Subjective: Mr. Callaway is doing well this morning. His only complaint is he has not had a bowel movement in several days. - Objective Vital Signs & Weight: Vital Signs (12 hours) Temp Pulse Resp BP Pulse Ox 05/26/20 03:34 98.2 F 80 16 139/63 92 L 05/25/20 23:42 143/73 H Weight Weight 149.685 kg I&O: 05/24/20 05/25/20 05/26/20 06:59 06:59 06:59 Intake Total 240 Output Total 150 Balance 90 Result Diagrams: 05/26/20 03:41 05/26/20 03:41 EKG Reviewed by me: Yes (tele: bigeminal PACs, HR 70-80s all night) Phys Exam - Physical Examination Constitutional: NAD HEENT: PERRLA, moist MMs, sclera anicteric Neck: full ROM Respiratory: no wheezing, no rales, no rhonchi, clear to auscultation bilateral Cardiovascular: RRR, no significant murmur, no rub Gastrointestinal: soft, non-tender, no distention, positive bowel sounds Musculoskeletal: pulses present, edema present Neurological: moves all 4 limbs Psychiatric: normal affect, A&O x 3 Dx/Plan (1) Bradycardia Code(s): R00.1 - BRADYCARDIA, UNSPECIFIED Status: Acute (2) HLD (hyperlipidemia) Code(s): E78.5 - HYPERLIPIDEMIA, UNSPECIFIED Status: Acute (3) Dementia Code(s): F03.90 - UNSPECIFIED DEMENTIA WITHOUT BEHAVIORAL DISTURBANCE Status: Chronic (4) Diabetes type 2, controlled Code(s): E11.9 - TYPE 2 DIABETES MELLITUS WITHOUT COMPLICATIONS Status: Chronic (5) Hypertension Code(s): I10 - ESSENTIAL (PRIMARY) HYPERTENSION Status: Chronic - Plan Plan: 69 yo M with a history of DMII, HLD, HTN, and dementia presented to ED complaining of lower back pain and was incidentally found to have intermittent bradycardia. Bradycardia -asymptomatic -Card recs: Recommended overnight monitoring. Will followup outpatient if no symptomatic bradycardia is monitored. -trop <0.01->0.025->0.031 -TSH 0.38, Mg 1.7, Phos 3.7 -ECHO pending -repeat trop Lumbar back pain -Relieved with morphine in ED -CT revealed no evidence of acute fracture DMII -Continue home metformin -SSI prn HLD -Continue home atorvastatin HTN -Continue home amlodopine and lisinopril Dementia -Continue home donepezil PCP: Yanci GAN Code: FULL Diet: CC 1999 VTE PPx: Lovenox Dispo: Observation, tele, stable. LOS<48hrs. Discharge pending telemetry and ECHO results.
[2020-05-26 08:12] LABS: Troponin I 0.026 ng/mL (< 0.028)
[2020-05-26] MEDS: Donepezil HCl 5 MG TAB PO SCH (08:12)
[2020-05-26] MEDS: Atorvastatin Calcium 40 MG TAB PO SCH (08:12)
[2020-05-26] MEDS: Lisinopril 20 MG TAB PO SCH (08:12)
[2020-05-26] MEDS: Folic Acid 1 MG TAB PO SCH (08:12)
[2020-05-26] MEDS: metFORMIN 500 MG TAB PO SCH ×2 (08:13→17:13)
[2020-05-26] MEDS: Furosemide 40 MG TAB PO SCH (08:13)
[2020-05-26] MEDS: Enoxaparin Sodium 40 MG/0.4 ML SYRINGE SC SCH (08:18)
[2020-05-26] MEDS: Amlodipine 5 MG TAB PO SCH (08:21)
[2020-05-26] MEDS ORDERED: Prevnar 13-Val Conj/PF 0.5 ML SYRINGE IM ONE (09:00)
--- NOTE | 2020-05-26 11:04 | PRG ---
DATE OF SERVICE: 05/26/2020 Please see the note from Dr. Vladimir Kern for which I agree. The patient was seen, evaluated, discussed, and examined with the residents. Overnight, pulse rate in the 70s and 80s, did not go as low as when he was initially put in. Per Dr. Melendez's note, it sounds like his bradycardia is actually chronic and so asymptomatic, not a big concern. The back pain for which emergency room has cleared and so should be able to be discharged on same medications. Job ID: [id number]
[2020-05-26] MEDS: Senokot S 8.6-50 MG TAB PO SCH ×2 (15:18→20:03)
--- NOTE | 2020-05-27 05:28 | PDOC.FM ---
- Subjective Subjective: Pt resting comfortably in bed. Pt had no complaints at this time. He did think that he had been in the hospital for 2 weeks and thought that we were in his living room. He acknowledged that he has memory issues. He states that he had a bowel movement this AM which made him feel better, he had not had one in 3 weeks. - Objective Vital Signs & Weight: Vital Signs (12 hours) Temp Pulse Resp BP BP Pulse Ox 05/27/20 01:04 97.4 F L 47 L 20 144/66 H 94 L 05/26/20 19:40 98.5 F 96 20 117/73 98 Weight Weight 149.595 kg I&O: 05/25/20 05/26/20 05/27/20 06:59 06:59 06:59 Intake Total 340 1600 Output Total 950 650 Balance -610 950 Result Diagrams: 05/26/20 03:41 05/26/20 03:41 Phys Exam - Physical Examination Constitutional: NAD HEENT: PERRLA Respiratory: no wheezing, no rales, no rhonchi, clear to auscultation bilateral Cardiovascular: RRR, no significant murmur Gastrointestinal: soft, non-tender, no distention Musculoskeletal: pulses present Psychiatric: normal affect (AxO x 1 was not able to tell me time or place) Skin: no rash, normal turgor, cap refill <2 seconds Dx/Plan - Plan Plan: 69 y/o M with history of DMII, HTN, HLD, and dementia presented to ED c/o lower back pain and was incidentally found to have intermittent, asymptomatic bradycardia. ##Asymptomatic Bradycardia -pt denies any symptoms -overnight monitoring did not reveal any bradycardic events -TSH: 0.38, Mg 1.7, Phos 3.7 -trop trend: 0.025-->0.031-->0.026 -echo: EF 55-60% and diasytolic dysfunction noted ##Lumbar Spine Pain -CT showed no evidence of acute fracture -relieved with morphine in ED -no complaints of pain today ##DM Type 2, non insulin dependent -mild SSI -continue home metformin ##HTN -continue home amlodipine and lisinopril ##HLD -continue home atorvastatin ##Dementia -continue home donepezil ## DENIZ -pt has sleep apnea and states that he has CPAP at home that he does not use VTE PPX: Lovenox Diet: CC 1999 PCP: Yanci Code: Full Dispo: pending home health. will consult with CM today. PT advised home health with physical therapy due to unsteady balance. Addendum - Attending - Attending Attestation Date/Time: 05/27/20 0388 I personally evaluated the patient and discussed the management with Dr. Castellanos. I agree with the History, Examination, Assessment and Plan documented above with any addition or exceptions noted below. Patient stable. Denies back pain. No major evidence of continued bradycardia. Stable for discharge and working to set up .
[2020-05-27] MEDS: Amlodipine 5 MG TAB PO SCH ×2 (08:35→08:45)
[2020-05-27] MEDS: HumaLOG 300 UNITS/3 ML VIAL SC PRN ×2 (08:40→17:38)
[2020-05-27] MEDS: Lisinopril 20 MG TAB PO SCH ×2 (08:41→09:02)
[2020-05-27] MEDS: Enoxaparin Sodium 40 MG/0.4 ML SYRINGE SC SCH (08:41)
[2020-05-27] MEDS: Atorvastatin Calcium 40 MG TAB PO SCH (08:44)
[2020-05-27] MEDS: Furosemide 40 MG TAB PO SCH (08:45)
[2020-05-27] MEDS: Senokot S 8.6-50 MG TAB PO SCH ×2 (08:46→20:40)
[2020-05-27] MEDS: metFORMIN 500 MG TAB PO SCH ×2 (08:46→16:18)
[2020-05-27] MEDS: Folic Acid 1 MG TAB PO SCH (08:49)
[2020-05-27] MEDS: Donepezil HCl 5 MG TAB PO SCH (09:45)
[2020-05-27] MEDS: Acetaminophen 325 MG TAB PO PRN ×2 (09:55→16:18)
[2020-05-27 16:50] VITALS: BMI 44.9
--- NOTE | 2020-05-28 05:24 | PDOC.FM ---
- Subjective Subjective: Pt resting comfortably at bedside. Had no complaints overnight. Had 2 loose bowel movements yesterday evening but had none this morning. Did well with PT going up and downstairs yesterday evening and feels very comfortable performing this task. - Objective Vital Signs & Weight: Vital Signs (12 hours) Temp Pulse Resp BP Pulse Ox 05/28/20 04:00 97.9 F 57 L 16 137/63 93 L 05/28/20 00:00 98.0 F 64 18 138/60 96 05/27/20 19:00 97.8 F 89 16 144/68 H 97 Weight Weight 150.094 kg I&O: 05/26/20 05/27/20 05/28/20 06:59 06:59 06:59 Intake Total 340 2080 700 Output Total 950 650 Balance -610 1430 700 Result Diagrams: 05/26/20 03:41 05/26/20 03:41 Phys Exam - Physical Examination Constitutional: NAD HEENT: PERRLA, moist MMs Respiratory: no wheezing, no rhonchi, clear to auscultation bilateral Cardiovascular: RRR, no significant murmur, no rub Gastrointestinal: soft, non-tender, no distention, positive bowel sounds Musculoskeletal: no edema, pulses present Psychiatric: normal affect Dx/Plan - Plan Plan: 75 y/o M with history of DMII, HTN, HLD, and dementia presented to ED c/o lower back pain and was incidentally found to have intermittent, asymptomatic bradycardia. ##Asymptomatic Bradycardia -pt denies any symptoms -pt has had no bradycardic events -TSH: 0.38, Mg 1.7, Phos 3.7 -trop trend: 0.025-->0.031-->0.026 -echo: EF 55-60% and diasytolic dysfunction noted ##Lumbar Spine Pain -CT showed no evidence of acute fracture -relieved with morphine in ED -no complaints of pain today ##DM Type 2, non insulin dependent -mild SSI -continue home metformin ##HTN -continue home amlodipine and lisinopril ##HLD -continue home atorvastatin ##Dementia -continue home donepezil ## DENIZ -pt has sleep apnea and states that he has CPAP at home that he does not use VTE PPX: Lovenox Diet: CC 1999 PCP: Yanci Code: Full Dispo: d/c pending home health. PT advised home health with physical therapy. Addendum - Attending - Attending Attestation Date/Time: 05/28/20 5255 I personally evaluated the patient and discussed the management with Dr. Castellanos. I agree with the History, Examination, Assessment and Plan documented above with any addition or exceptions noted below. Doing well, stable for discharge.
[2020-05-28] MEDS: Acetaminophen 325 MG TAB PO PRN (08:14)
[2020-05-28] MEDS: metFORMIN 500 MG TAB PO SCH (08:14)
--- NOTE | 2020-05-28 08:36 | DIS ---
DATE OF ADMISSION: 05/25/2020 DATE OF DISCHARGE: 05/28/2020 RESIDENT: Vianca Castellanos DO ADMITTING ATTENDING: Wesley Browning MD DISCHARGE ATTENDING: Bernard Fu MD CONSULT: Physical Therapy. PROCEDURES AND IMAGING: Ultrasound and venous Doppler showed no evidence of DVT. CT abdomen and pelvis showed no evidence of acute intra-abdominal or pelvic abnormality, right renal cyst. X-ray of chest showed stable cardiomegaly. PRIMARY DIAGNOSES: Asymptomatic bradycardia, lumbar pain. SECONDARY DIAGNOSES: Diabetes type 2, non-insulin dependent; hypertension; hyperlipidemia; dementia; obstructive sleep apnea. DISCHARGE MEDICATIONS: 1. Amlodipine 5 mg p.o. daily. 2. Atorvastatin 80 mg p.o. daily. 3. Donepezil 5 mg p.o. daily. 4. Folic acid 1 mg p.o. daily. 5. Lasix 40 mg p.o. daily. 6. Lisinopril 40 mg p.o. daily. 7. Metformin 500 mg p.o. b.i.d. DISCONTINUED MEDICATIONS: None. HISTORY OF PRESENT ILLNESS: This is a 75-year-old male who presented to the emergency room complaining of lower back pain. He denied any trauma. Imaging as stated above did not any evidence of any acute lumbar fracture. While in the ED, the patient was shown to be bradycardic with heart rate in the 40s without any symptoms and for this reason he was admitted for observation. His troponin was negative. During his hospital course, the patient's lumbar spine pain abated. The patient worked with Physical Therapy and was found that he had decreased strength and mobility and it was recommended that he go home with Home Health Physical Therapy. The patient agreed to plan. DISPOSITION: Stable. DISCHARGE INSTRUCTIONS: 1. Location: Home. 2. Diet: Heart healthy. 3. Activity: No Restrictions 4. Followup: In 1 to 2 weeks outpatient with [facility]. The patient will have Home Health Physical therapy. Job ID: [id number] MTDD
[2020-05-28] MEDS: Enoxaparin Sodium 40 MG/0.4 ML SYRINGE SC SCH (09:24)
[2020-05-28] MEDS: Amlodipine 5 MG TAB PO SCH (09:25)
[2020-05-28] MEDS: Atorvastatin Calcium 40 MG TAB PO SCH (09:25)
[2020-05-28] MEDS: Furosemide 40 MG TAB PO SCH (09:25)
[2020-05-28] MEDS: Lisinopril 20 MG TAB PO SCH (09:26)
[2020-05-28] MEDS: Folic Acid 1 MG TAB PO SCH (09:27)
[2020-05-28 10:10] VITALS: BP 153/78; TEMP 98.5
[2020-05-28] MEDS: Donepezil HCl 5 MG TAB PO SCH (10:27)
[2020-05-28] MEDS: Senokot S 8.6-50 MG TAB PO SCH (10:28)
== END 2020-05-28 12:16 | disposition home health service (06) ==
LOC: ERS 10:43 → 2NO 12:19 → ONC 05-26 16:15
PROVIDERS: ADMIT Family Medicine; ATTEND Family Medicine
DX: M54.5 Low back pain (principal); R00.1 Bradycardia, unspecified; F03.90 Unspecified dementia, unspecified severity, without behavioral disturbance, psychotic disturbance, mood disturbance, and anxiety; E78.5 Hyperlipidemia, unspecified; I13.0 Hypertensive heart and chronic kidney disease with heart failure and stage 1 through stage 4 chronic kidney disease, or unspecified chronic kidney disease; E11.22 Type 2 diabetes mellitus with diabetic chronic kidney disease; N18.9 Chronic kidney disease, unspecified; I50.9 Heart failure, unspecified; G47.33 Obstructive sleep apnea (adult) (pediatric); I87.2 Venous insufficiency (chronic) (peripheral); B35.1 Tinea unguium; N28.1 Cyst of kidney, acquired; E66.01 Morbid (severe) obesity due to excess calories; Z68.41 Body mass index [BMI] 40.0-44.9, adult; Z87.891 Personal history of nicotine dependence; Z79.84 Long term (current) use of oral hypoglycemic drugs; Z79.899 Other long term (current) drug therapy; Z98.84 Bariatric surgery status
CPT/HCPCS: 36415; 36416; 71045; 74177; 80048; 80053; 81003; 83605; 83690; 83735; 83880; 84100; 84443; 84484; 85025; 87324; 87449; 93005; 93306; 93970; 94760; 96372; 96374; 96375; G0378; J1650; J2270; J2405; Q9967